=== PATIENT | female | born 1960 | race Caucasian/White ===

== ENCOUNTER 2023-06-27 18:33 | Emergency (ER) | payer OTHER, SELFPAY ==
[2023-06-27 18:36] VITALS: BP 155/97; PULSE 63; RESP 20; TEMP 36.7; O2SAT 95; BMI 38.6
--- NOTE | 2023-06-27 19:09 | XR_ITS ---
The [address] [address] Patient Name: LEODAN TONEY MRN: [id number] date: 1960 Sex: F Assigned Patient Location: ER Current Patient Location: ER Accession/Order Number: [id number] Exam Date: 06/27/2023 20:05 Report Date: 06/27/2023 21:25 At the request of: EDWARD SINGER Procedure: XR lumbar spine 2-3V EXAM TYPE: XR lumbar spine 2-3V EXAM DATE AND TIME: 06/27/2023 8:05 PM EDT INDICATION: 62 years old Female with pain COMPARISON: None. TECHNIQUE: 3 views of the lumbar spine. FINDINGS: No acute fracture or traumatic malalignment. Normal lumbar lordosis. No listhesis. No abnormal curvature. Vertebral body heights are normal. Disc heights are maintained. Visualized soft tissues are unremarkable. XR/XR lumbar spine 2-3V IMPRESSION: No acute fracture or traumatic malalignment. CT or MRI of the lumbar spine considered for further evaluation, as clinically indicated. Electronically authenticated by: SHABBIR PEACOCK Date: 06/27/2023 21:25
--- NOTE | 2023-06-27 19:21 | ED_ITS ---
HPI - Extremity Problem General Chief complaint: Extremity Problem, Nontraumatic Stated complaint: Lower Extremity Pain Time Seen by Provider: 06/27/23 19:18 Source: patient Mode of arrival: walk-in Limitations: no limitations History of Present Illness HPI Narrative: 62-year-old female presents for bilateral leg pain which she has had for many months. Her right leg hurts from the hip down and the left from the knee down. Her back also hurts. No trauma. No leg swelling. No chest pain or shortness of breath. She hasn't talked to her doctor about this and hasn't taken any medication for it either. The pain is moderate. Related Data Home Medications Medication Instructions Recorded Confirmed albuterol sulfate 90 mcg/actuation 2 puff inhalation Q4H PRN 06/27/23 06/27/23 aerosol inhaler shortness of breath or wheezing tramadol 50 mg tablet 50 mg PO Q6H PRN pain 06/27/23 06/27/23 Previous Rx's Medication Instructions Recorded etodolac 400 mg tablet (Lodine) 400 mg PO Q12H PRN pain #20 tabs 06/27/23 Allergies Allergy/AdvReac Type Severity Reaction Status Date / Time codeine AdvReac Severe Hallucinati Verified 06/27/23 18:41 ng Review of Systems ROS Narrative A ten point review of systems is negative except as noted above. PFSH PFSH Social History Smoking status: Never smoker Exam Narrative Exam Narrative: Nurses note and vital signs reviewed and patient is not hypoxic. General: The patient appears well and in no apparent distress. Patient is resting comfortably on cart. Skin: Warm, dry, no pallor noted. There is no rash noted. Head: Normocephalic, atraumatic Eye: Normal conjunctiva, no drainage Ears, Nose, Mouth, and Throat: oral mucosa is moist. Nares patent. Cardiovascular: Regular Rate and Rhythm Respiratory: Patient is in no distress, no accessory muscle use, lungs are clear to auscultation, no wheezing, rales or rhonchi Back: non-tender, no bruise or rash or abrasion to her back GI: nontender Musculoskeletal: neither leg is swollen at any point. No erythema. No masses. No bruising or rash. Hips knees and ankles have full range of motion. No ankle edema. Neurological: A&O, normal speech Psychiatric: Cooperative Constitutional Vital Signs, click to edit/add: Last Vital Signs Temp 97.9 F 06/27/23 20:18 Pulse 60 06/27/23 20:18 Resp 18 06/27/23 20:18 BP 150/98 H 06/27/23 20:18 Pulse Ox 95 06/27/23 20:18 O2 Del Method Room Air 06/27/23 20:18 Course Vital Signs Vital signs: Vital Signs Temperature 98.1 F 06/27/23 18:36 Pulse Rate 63 06/27/23 18:36 Respiratory Rate 20 06/27/23 18:36 Blood Pressure 155/97 H 06/27/23 18:36 Pulse Oximetry 95 06/27/23 18:36 Oxygen Delivery Method Room Air 06/27/23 18:36 Temperature 97.9 F 06/27/23 20:18 Pulse Rate 60 06/27/23 20:18 Respiratory Rate 18 06/27/23 20:18 Blood Pressure 150/98 H 06/27/23 20:18 Pulse Oximetry 95 06/27/23 20:18 Oxygen Delivery Method Room Air 06/27/23 20:18 MDM - Extremity (Nontraumatic) MDM Narrative Medical decision making narrative: Lumbar films do not show any acute findings and blood work is negative. I've no clinical suspicion of deep vein thrombosis and she is reassured in that regard. She is already on Ultram at home and was prescribed Lodine and will follow-up with her doctor. Treatment diagnosis and follow-up were discussed with the patient. Differential Diagnosis Differential diagnosis: Likely other (skeletal skeletal pain, deep vein thrombosis, lumbar radiculopathy) Lab Data Labs: Lab Results 06/27/23 Range/Units 19:17 WBC 6.2 (4.0-11.0) 10^3/uL RBC 4.36 (4.20-5.40) 10^6/uL Hgb 13.2 (12.0-16.0) g/dL Hct 41.1 (36.0-48.0) % MCV 94.3 (81.0-99.0) fL MCH 30.3 (26.7-34.0) pg MCHC 32.1 (29.9-35.2) g/dL RDW 14.3 (11.0-15.0) % Plt Count 220 (150-450) 10^3/uL MPV 10.5 (9.5-13.5) fL Neut % (Auto) 50.4 (43.0-75.0) % Lymph % (Auto) 34.1 (20.5-60.0) % [place] % (Auto) 8.8 (1.7-12.0) % Eos % (Auto) 5.5 (0.9-7.0) % Baso % (Auto) 1.0 (0.2-2.0) % Neut # (Auto) 3.1 (1.4-6.5) 10^3/uL Lymph # (Auto) 2.1 (1.2-3.8) 10^3/uL [place] # (Auto) 0.5 (0.3-0.8) 10^3/uL Eos # (Auto) 0.3 (0.0-0.7) 10^3/uL Baso # (Auto) 0.1 (0.0-0.1) 10^3/uL Abs Immat Gran (auto) 0.01 (0.00-0.03) 10^3/uL Imm/Tot Granulo (auto) 0.2 (0.0-0.5) % Sodium 139 (136-145) mmol/L Potassium 4.0 (3.5-5.1) mmol/L Chloride 105 (98-107) mmol/L Carbon Dioxide 26.3 (21.0-32.0) mmol/L Anion Gap 11.7 BUN 16.0 (7.0-18.0) mg/dL Creatinine 1.15 H (0.55-1.02) mg/dL Est GFR ( Amer) 58 L (>=60) Est GFR (Non-Af Amer) 48 L (>=60) BUN/Creatinine Ratio 13.9 Glucose 105 (74-106) mg/dL Calcium 8.6 (8.5-10.1) mg/dL Imaging Data lumbar x-rays: Radiologist's impression: Procedure: XR lumbar spine 2-3V EXAM TYPE: XR lumbar spine 2-3V EXAM DATE AND TIME: 06/27/2023 8:05 PM EDT INDICATION: 62 years old Female with pain COMPARISON: None. TECHNIQUE: 3 views of the lumbar spine. FINDINGS: No acute fracture or traumatic malalignment. Normal lumbar lordosis. No listhesis. No abnormal curvature. Vertebral body heights are normal. Disc heights are maintained. Visualized soft tissues are unremarkable. IMPRESSION: No acute fracture or traumatic malalignment. CT or MRI of the lumbar spine considered for further evaluation, as clinically indicated. Electronically authenticated by: SHABBIR PEACOCK Date: 06/27/2023 21:25 Discharge Plan Discharge Chief Complaint: Extremity Problem, Nontraumatic Clinical Impression: Bilateral leg pain Patient Disposition: Home, Self-Care Time of Disposition Decision: 21:39 Condition: Good Mode of Transportation: Private Vehicle Prescriptions / Home Meds: New etodolac [Lodine] 400 mg tablet 400 mg PO Q12H PRN (Reason: pain) Qty: 20 0RF No Action albuterol sulfate 90 mcg/actuation HFA aerosol inhaler 2 puff INHALATION Q4H PRN (Reason: shortness of breath or wheezing) tramadol 50 mg tablet 50 mg PO Q6H PRN (Reason: pain) Instructions: Leg Pain (ED) Stand Alone Forms: Portal Instructions Referrals: LAVON NOVA [Primary Care Provider] - 1 week
[2023-06-27 19:37] LABS: Anion Gap 11.7; BUN Creatinine Ratio 13.9; Calcium 8.6 mg/dL (8.5-10.1); Carbon Dioxide 26.3 mmol/L (21.0-32.0); Chloride 105 mmol/L (98-107); Estimated GFR (African America 58 (>=60); Estimated GFR (Non-African Ame 48 (>=60); Glucose 105 mg/dL (74-106); Sodium 139 mmol/L (136-145)
[2023-06-27 19:44] LABS: Basophils Absolute Auto 0.1 10^3/uL (0.0-0.1); Eosinophils Absolute Auto 0.3 10^3/uL (0.0-0.7); Eosinophils Percent Auto 5.5 % (0.9-7.0); Hematocrit 41.1 % (36.0-48.0); Hemoglobin 13.2 g/dL (12.0-16.0); Immature Granulocytes Abs Auto 0.01 10^3/uL (0.00-0.03); Immature Granulocytes Pct Auto 0.2 % (0.0-0.5); Lymphocytes Absolute Auto 2.1 10^3/uL (1.2-3.8); Lymphocytes Percent Auto 34.1 % (20.5-60.0); Mean Corpuscular HGB Conc 32.1 g/dL (29.9-35.2); Mean Corpuscular Hemoglobin 30.3 pg (26.7-34.0); Mean Corpuscular Volume 94.3 fL (81.0-99.0); Mean Platelet Volume 10.5 fL (9.5-13.5); Monocytes Absolute Auto 0.5 10^3/uL (0.3-0.8); Monocytes Percent Auto 8.8 % (1.7-12.0); Neutrophils Absolute Auto 3.1 10^3/uL (1.4-6.5); Neutrophils Percent Auto 50.4 % (43.0-75.0); Platelet Count 220 10^3/uL (150-450); Red Blood Count 4.36 10^6/uL (4.20-5.40); Red Cell Distribution Width 14.3 % (11.0-15.0); White Blood Count 6.2 10^3/uL (4.0-11.0)
[2023-06-27 20:18] VITALS: BP 150/98; PULSE 60; RESP 18; TEMP 36.6; O2SAT 95
== END 2023-06-27 22:00 | disposition home or self-care (01) ==
PROVIDERS: Emergency Medicine Emergency Medical Services; Emergency Provider Emergency Medicine; PCP Internal Medicine
DX: M79.605 Pain in left leg (principal); M79.604 Pain in right leg; Z79.899 Other long term (current) drug therapy
CPT/HCPCS: 36415; 72100; 80048; 85025; 99284

== ENCOUNTER 2023-11-20 14:26 | Outpatient (OUT) | payer OTHER, SELFPAY ==
--- NOTE | 2023-11-20 14:30 | CA_ITS ---
[facility] Test Date: 2023-12-08 Pat Name: LEODAN TONEY Department: Room: - Gender: Female Emergency Medicine: : 1960 Requested By: [id number] Order Number: [id number] Reading MD: CHET HARRIS Interpretive Statements Predominant rhythm is sinus with average rate of 53 bpm Tachycardia - max rate of 121 bpm (PSVT) - 7 episodes of PSVT w/ fastest rate 121 bpm and longest duration of 8 beats - longest episode of 1min 26sec with rates between 103-104 bpm Bradycardia (84% burden) - min rate of 34 bpm, occurring during sleep Ventricular ectopy - 1,109 total, < 1% - 58 couplets - 1,048 PVC NSVT - 1 episodes of accelerated idioventriculr rhythm of 3 beat duration Patient triggered events: 3 - not associated with symptoms - associated with sinus bradycardia w/ rates between 50-60 bpm Impression: Predominant rhythm is sinus with average rate of 53 bpm Fastest rate of 121 bpm (PSVT) and slowest rate of 34 bpm 1 episode of idioventricular rhythm of 3 beat duration 1 episodes labeled junctional rhythm, which is questionable, since P waves are difficult to visualize on all strips. 1,048 PVC, 58 couplets No atrial fibrillation No pauses Electronically Signed On 12-10-2023 6:58:33 EDT by CHET HARRIS
== END 2023-11-20 14:27 | disposition home or self-care (01) ==
LOC: CARD 14:26
PROVIDERS: PCP Internal Medicine; Visit Provider Nurse Practitioner Family
DX: R07.2 Precordial pain (principal); R00.1 Bradycardia, unspecified
CPT/HCPCS: 93246

== ENCOUNTER 2024-06-21 08:49 | Outpatient (OUT) | payer OTHER, SELFPAY ==
--- OUTSIDE RECORDS SUMMARY | 2024-06-21 09:00 | XMS_ITS | CCD ---
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 Role Phone UNKNOWN, PROVIDER Admitting Unavailable UNKNOWN, PROVIDER Attending Unavailable ADRIAN FARIA Referring Unavailable ADRIAN FARIA Primary Care Unavailable ISAIAS, DR KIKE Contreras Attending Unavailable ISAIAS, DR KIKE Contreras Consulting Unavailable ISAIAS, DR KIKE Contreras Admitting Unavailable DR ADRIAN FARIA Primary Care Unavailable ADRIAN FARIA Primary Care Physician [phone] RYNE Faria Primary Care Provider [phone] TREE Vazquez Attending Provider [phone] None, No PCP Unavailable Unavailable BERKLEY ANNE Referring Unavailable ADRIAN FARIA Primary Care Unavailable Dr. Berkley Anne Attending Unav ailable Radha, Dr. Berkley Sue Attending Unav ailable Unavailable Primary Care Provider UnavailBERKLEY Solorio Attending Unavailable BERKLEY ANNE Referring Unavailable BERKLEY ANNE Attending Unavailable BERKLEY ANNE Referring Unavailable Adrian Faria MD Primary Care Provider [phone] Adrian Faria MD Unavailable [phone] RYNE Faria Primary Care Provider RYNE Faria Referring Provider Self, Referral Attending Provider Unavailable Self, Referral Attending Unavailable Self, Referral Admitting Unavailable Adrian Faria Referring Unavailable Adrian Faria Primary Care Unavailable Jamal Gardner Attending Unavailable MD Hi Rey Attending Unavailable DEE CULLEN NP-C Referring Unavailable Ramses Corea Attending Unavailable Riccardo Resendiz Consulting Unavaila DEE Mora PASTRY CHEF-C Admitting Unavailable DEE CULLEN PASTRY CHEF-C Attending Unavailable DEE CULLEN PASTRY CHEF-C Referring Unavailable MD Riccardo Resendiz Consulting Unava Riccardo Flores Consulting Unavaila ble ADRIAN FARIA Admitting Unavailable ADRIAN FARIA Attending Unavailable MD Hi Rey Admitting Unavailable MD Hi Rey Attending Unavailable DEE CULLEN PASTRY CHEFMary Admitting Unavailable DEE CULLEN PASTRY CHEFMiltonC Attending Unavailable ADRIAN FARIA Attending Unavailable ADRIAN FARIA Attending Unavailable DEE CULLEN Attending Unavailable ADRIAN FARIA Attending Unavailable DEE CULLEN Attending Unavailable DEE CULLEN Attending Unavailable ANTWAN VAZQUEZ Attending Unavailable ADRIAN FARIA Attending Unavailable Allergies Allergy Classification Reported Allergen(s) Allergy Type Date of Onset Reaction(s) Facility Opioid Agonists (1 source) Codeine Drug Allergy 11-22-19 16 [facility] Repository (5 sources) Codeine; Translations: [CODEINE] Drug Allergy 11-17-19 18 Halluc[address] [facility] Repository (20 sources) Codeine; Translations: [codeine] Drug Allergy 04-08-20 23 Hallucinations (finding), Unknown [facility] (3 sources) Latex Exam Gloves MISC; Translations: [Latex Exam Gloves MISC] Allergy to drug (finding) [facility] Work Phone: (2 sources) Latex; Translations: [LATEX] Propensity to adverse reactions 05-15-20 Unknown [facility] Work Phone: (5 sources) Latex Propensity to adverse reactions 05-15-20 Unknown [facility] Work Phone: (1 source) Codeine Drug Allergy 02-17-20 19 [facility] Repository Medications Current Medications Medication Drug Class(es) Dates Sig (Normalized) Sig (Original) [id number] 200 actuat albuterol 0.09 mg/actuat metered dose inhaler (20 sources) beta2-Adrenergic Agonist Start: 05-13-2023 End: 05-12-2024 take 2 puff(s) by inhalation every four hours for wheezing albuterol HFA 90 mcg/act inhaler Indications: Moderate persistent asthma with exacerbation (CMS/HCC) Inhale 2 puffs every 4 (four) hours if needed for wheezing or shortness of breath. 18 g 11 05/13/2023 05/12/2024 Active Start: 08-19-2021 take 2.5 mg by inhal ation every six hours as needed for wheezing albuterol 0.083% Inh Leila 3 mL 2.5 mg, 3 mL, NEB, q6hr as needed for wheezing, Refill(s) 0 Start Date: 08/19/21 Status: Ordered Start: 06-20-2018 End: 01-20-2022 take 1 puff(s) by inhalation every six hours Albuterol Sulfate Discontinued 2 PUFF INHALATION Q6H June 20, 2018 12:00am January 20, 2022 8:35am albuterol (2.5 M G/3ML) 0.083% nebulizer solution inhale contents of 1 vial ( 3 milliliters ) in nebulizer by mouth and INTO THE LUNGS every 4 to 6 hours if needed for 30 0 Active amoxicillin 875 mg / clavulanate 125 mg oral tablet (2 sources) Penicillin-class Antibacterial Start: 10-07-2023 End: 10-17-2023 take 1 tablet by mouth in the morning amoxicillin-clavulanate (Augmentin) 875-125 MG tablet Indications: Acute non-recurrent sinusitis, unspecified location Take 1 tablet (875 mg) by mouth in the morning and 1 tablet (875 mg) before bedtime. Do all this for 10 days. 20 tablet 0 10/07/2023 10/17/2023 Active cefdinir 300 mg oral capsule (2 sources) Cephalosporin Antibacterial Start: 10-29-2023 End: 11-05-2023 take 1 capsule by mouth in the morning cefdinir (Omnicef) 300 MG capsule Indications: Acute non-recurrent sinusitis, unspecified location , Cervical radiculitis Take 1 capsule (300 mg) by mouth in the morning and 1 capsule (300 mg) before bedtime. Do all this for 7 days. 14 capsule 0 10/29/2023 11/05/2023 Active 30 actuat fluticasone furoate 0.1 mg/actuat / umeclidinium 0.0625 mg/actuat / vilanterol 0.025 mg/actuat dry powder inhaler (5 sources) Anticholinergic, Corticosteroid, beta2-Adrenergic Agonist Start: 10-07-2023 take 1 puff(s) by inhalation in the morning Cqxwixpmmuy-Ctnjqdatb-Ise ant (Trelegy Ellipta) 100-62.5-25 MCG/ACT aerosol powder Indications: Moderate persistent asthma with exacerbation (CMS/HCC) Inhale 1 puff in the morning. 0 10/07/2023 Active gabapentin 300 mg oral capsule (8 sources) Anti-epileptic Agent Start: 08-19-2021 take 2 capsules by mouth twice daily gabapentin 300 mg Cap 600 mg = 2 cap(s), Oral, BID, Refills(s) 0 Start Date: 08/19/21 Status: Ordered levoFLOXacin 500 mg oral tablet (2 sources) Quinolone Antimicrobial Start: 10-15-2023 End: 10-25-2023 take 1 tablet by mouth in the morning levoFLOXacin (Levaquin) 500 MG tablet Indications: Acute non-recurrent sinusitis, unspecified location Take 1 tablet (500 mg) by mouth in the morning for 10 days. 10 tablet 0 10/15/2023 10/25/2023 Active meclizine hydrochloride 25 mg oral tablet (10 sources) Antiemetic Start: 08-13-2023 take 1 tablet by mouth three times daily as needed for dizziness meclizine 25 mg Tab 25 mg = 1 tab(s), Oral, TID, PRN Dizziness, # 15 tab(s), Refills(s) 0, [id number], 162, cm, 08/13/23 13:28:00 EST, Height/Length Dosing, 101.5, kg, 08/13/23 13:28:00 EST, Weight Dosing Start Date: 08/13/23 Status: Ordered Start: 08-19-2021 take 1 tablet by kulwinder th once daily meclizine 25 mg Tab 25 mg = 1 tab(s), Oral, Daily, Refills(s) 0 Start Date: 08/19/21 Status: Ordered methylPREDNISolone (2 sources) Corticosteroid Start: 10-29-2023 End: 11-05-2023 methylPREDNISolone (Medrol Dospak) 4 MG tablets Indications: Acute non-recurrent sinusitis, unspecified location Follow schedule on package instructions 21 tablet 0 10/29/2023 11/05/2023 Active predniSONE 20 mg oral tablet (3 sources) Start: 04-04-2024 End: 04-09-2024 take 2 tablets by mouth once daily predniSONE 20 mg Tab 40 mg = 2 tab(s), Oral, Daily, X 5 day(s), # 10 tab(s), Refills(s) 0, Pharmacy: [facility]/pharmacy #[id number], 162, cm, 04/04/24 13:53:00 EDT, Height/Length Dosing, 100.1, kg, 04/04/24 13:53:00 EDT, Weight Dosing Start Date: 04/04/24 Stop Date: 04/09/24 Status: Ordered Start: 06-20-2018 End: 10-07-2019 take 60 mg by mouth once daily Prednisone Discontinued 60 MG PO Daily June 20, 2018 12:00am October 07, 2019 10:25am ProAir HFA 90 mcg/inh inhalation aerosol (11 sources) Start: 08-19-2021 take 2 puff(s) by inhalation every four hours as needed for wheezing ProAir HFA 90 mcg/inh inhalation aerosol 2 puff(s), Inhalation, q4hr as needed for wheezing, Refill(s) 0 Start Date: 08/19/21 Status: Ordered traMADol hydrochloride 50 mg oral tablet (20 sources) Opioid Agonist Start: 03-06-2018 tramadol 50 mg oral tablet Refills(s) 0 Start Date: 11/16/20 Status: Ordered Zofran ODT 4 mg Tab-Dis (2 sources) Start: 08-13-2023 take 1 tablet by mouth three times daily Zofran ODT 4 mg Tab-Dis 4 mg = 1 tab(s), Oral, TID, # 15 tab(s), Refills(s) 0, Pharmacy: [facility] #[id number], 162, cm, 08/13/23 13:28:00 EST, Height/Length Dosing, 101.5, kg, 08/13/23 13:28:00 EST, Weight Dosing Start Date: 08/13/23 Status: Ordered zolpidem tartrate 10 mg oral tablet (8 sources) gamma-Aminobut yric Acid-ergic Agonist Start: 08-19-2021 take 1 tablet by mouth once daily at bedtime as needed for sleep Ambien 10 mg Tab 10 mg = 1 tab(s), Oral, Once a day (at bedtime), PRN for sleep Start Date: 08/19/21 Status: Ordered Completed/Discontinued Medications Medication Drug Class(es) Dates Sig (Normalized) Sig (Original) acetaminophen 325 mg / HYDROcodone bitartrate 5 mg oral tablet (2 sources) Opioid Agonist Start: 10-07-2019 End: 01-20-2022 take 1 tablet by mouth every four to six hours Hydrocodone-Acetamin ophen (Beals) 5-325 mg Tablet Discontinued 1 TAB PO EVERY 4-6 HOURS 7 October 07, 2019 1:00am January 20, 2022 8:35am benzonatate 100 mg oral capsule (2 sources) Non-narcotic Antitussive Start: 06-20-2018 End: 10-07-2019 take 1 capsule by mouth four times daily Benzonatate (Tessalon Perles) 100 mg capsule Discontinued 100 MG PO Four times daily June 20, 2018 12:00am October 07, 2019 10:25am cyclobenzaprine hydrochloride 10 mg oral tablet (2 sources) Muscle Relaxant Start: 10-07-2019 End: 01-20-2022 take 10 mg by mouth three times daily Cyclobenzaprine Discontinued 10 MG PO Three times daily October 07, 2019 1:00am January 20, 2022 8:35am Fluticasone Propion-Salmeterol (2 sources) Corticosteroid, beta2-Adrenergic Agonist Start: 06-20-2018 End: 01-20-2022 Fluticasone Propion-Salmeterol (Advair Diskus) 250-50 mcg/dose blister with device Discontinued 1 INH INHALATION Twice daily June 20, 2018 12:00am January 20, 2022 8:35am Problems Active Problems Problem Classification Problem Date Documented Date Episodic/Chronic Asthma (20 sources) Asthma; Translations: [Exacerbation of moderate persistent asthma] Onset: 08-13-2011 11-16-2020 Chronic Cataract (5 sources) Nuclear senile cataract; Translations: [Age-related nuclear cataract, unspecified eye] Onset: 04-08-2023 04-08-2023 Chronic Chronic kidney disease (5 sources) Chronic kidney disease stage 3A ; Translations: [Stage 3a chronic kidney disease (HCC)] Onset: 04-08-2023 04-08-2023 Chronic Disorders of lipid metabolism (5 sources) Raised low density lipoprotein cholesterol; Translations: [Pure hypercholesterolemia, unspecified] Onset: 04-08-2023 04-08-2023 Chronic Diverticulosis and diverticulitis (5 sources) Diverticulosis of sigmoid colon; Translations: [Diverticulosis of large intestine without perforation or abscess without bleeding] Onset: 04-08-2023 04-08-2023 Chronic Glaucoma (5 sources) 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; Translations: [Anatomical narrow angle, unspecified eye] Onset: 04-08-2023 04-08-2023 Chronic Joint disorders and dislocations; trauma-related (5 sources) Traumatic arthropathy-knee; Translations: [Traumatic arthropathy, left knee] Onset: 04-08-2023 04-08-2023 Chronic Osteoarthritis (3 sources) Primary osteoarthritis, right shoulder; Translations: [Primary osteoarthritis, unspecified shoulder] Onset: 03-19-2023 Chronic Other connective tissue disease (16 sources) Fibromyalgia; Translations: [Fibromyalgia] Onset: 04-08-2023 08-19-2021 Episodic Other connective tissue disease (1 source) Nontraumatic rupture of rotator cuff of right shoulder; Translations: [Partial tear of rotator cuff] Episodic Other connective tissue disease (1 source) Incomplete rotator cuff tear or rupture of right shoulder, not specified as traumatic; Translations: [Incomplete rotatr-cuff tear/ruptr of r shoulder, not trauma] Onset: 03-19-2023 Episodic Other nervous system disorders (5 sources) Carpal tunnel syndrome of left wrist; Translations: [Carpal tunnel syndrome, left upper limb] Onset: 04-08-2023 04-08-2023 Chronic Other nervous system disorders (5 sources) Mononeuropathy of lower limb; Translations: [Unspecified mononeuropathy of right lower limb] Onset: 04-08-2023 04-08-2023 Chronic Other non-traumatic joint disorders (6 sources) Loose body in shoulder joint; Translations: [Loose body in joint, shoulder region] Chronic Other non-traumatic joint disorders (1 source) Loose body in unspecified shoulder; Translations: [Loose body in unspecified shoulder] Onset: 02-24-2023 Chronic Other non-traumatic joint disorders (1 source) Loose body in right shoulder; Translations: [Loose body in right shoulder] Onset: 03-19-2023 Chronic Other non-traumatic joint disorders (6 sources) Loose body in joint of right shoulder region; Translations: [Loose body in right shoulder] Onset: 05-15-2023 05-15-2023 Chronic Other non-traumatic joint disorders (3 sources) Pain in right shoulder; Translations: [Pain in right shoulder] Onset: 01-12-2023 Episodic Other non-traumatic joint disorders (3 sources) Pain in right knee; Translations: [Pain in joint, lower leg] Onset: 07-13-2023 07-13-2023 Episodic Other non-traumatic joint disorders (1 source) Pain of right shoulder joint; Translations: [Pain in right shoulder] Onset: 04-04-2024 Episodic Other non-traumatic joint disorders (1 source) Pain in right hip joint; Translations: [Pain in right hip] Onset: 04-04-2024 Episodic Other nutritional; endocrine; and metabolic disorders (5 sources) Body mass index 30+ - obesity; Translations: [Obesity, unspecified] Onset: 04-08-2023 04-08-2023 Chronic Other nutritional; endocrine; and metabolic disorders (1 source) Obese class II; Translations: [Body mass index (BMI) 38.0-38.9, adult] Onset: 04-04-2024 Chronic Other screening for suspected conditions (not mental disorders or infectious disease) (9 sources) Patient encounter status; Translations: [Encounter for screening for malignant neoplasm of colon] Onset: 10-15-2023 01-20-2022 Episodic Other upper respiratory infections (4 sources) Acute sinusitis; Translations: [Acute sinusitis, unspecified] 10-15-2023 Episodic Residual codes; unclassified (11 sources) Sleep apnea 11-16-2020 Chronic Residual codes; unclassified (5 sources) Obstructive sleep apnea syndrome; Translations: [Obstructive sleep apnea (adult) (pediatric)] Onset: 11-25-2011 04-08-2023 Chronic Spondylosis; intervertebral disc disorders; other back problems (5 sources) Displacement of cervical intervertebral disc; Translations: [Other cervical disc displacement, unspecified cervical region] Onset: 04-08-2023 04-08-2023 Chronic Spondylosis; intervertebral disc disorders; other back problems (2 sources) Cervical radiculitis; Translations: [Radiculopathy, cervical region] 10-29-2023 Episodic Sprains and strains (14 sources) Strain of neck muscle; Translations: [Strain of muscle, fascia and tendon at neck level, initial encounter] Onset: 10-15-2023 10-07-2019 Episodic Past or Other Problems Problem Classification Problem Date Documented Date Episodic/Chronic Immunizations and screening for infectious disease (5 sources) Rheumatoid factor positive; Translations: [Other specified abnormal immunological findings in serum] Onset: 04-08-2023 04-08-2023 Episodic Nonspecific chest pain (5 sources) Chest pain; Translations: [Chest pain, unspecified] Onset: 11-13-2017 10-15-2023 Episodic Other connective tissue disease (6 sources) Non-traumatic partial tear of right rotator cuff; Translations: [Incomplete rotator cuff tear or rupture of right shoulder, not specified as traumatic] Onset: 05-15-2023 05-15-2023 Episodic Other nervous system disorders (5 sources) Paresthesia; Translations: [Paresthesia of skin] Onset: 04-08-2023 04-08-2023 Episodic Other non-traumatic joint disorders (9 sources) Shoulder joint pain; Translations: [Pain in joint, shoulder region] Onset: 05-15-2023 05-15-2023 Episodic Residual codes; unclassified (5 sources) Insomnia; Translations: [Insomnia, unspecified] Onset: 04-08-2023 04-08-2023 Episodic Results Test Name Value Interpretation Reference Range Facility Ambulatory Visit Summaryon 0 04-04-2024 Ambulatory Visit Summary Ambulatory Visit Summary RHONDA HULL :1960 Visit Date:04/04/2024 Ambulatory Visit Instructions Your Diagnosis BMI 38.0-38.9,adult Your Care Team Attending Physician - Anmol CASTANO, Ramses Dunn Primary Care Physician - ADRIAN FARIA MD This Is Your Medications List predniSONE (predniSONE 20 mg Tab) Contact prescribing physician if questions or concerns albuterol (ProAir HFA 90 mcg/inh inhalation aerosol) albuterol (albuterol 0.083% Inh Leila 3 mL) tramadol (tramadol 50 mg oral tablet) Procedures Performed Colonoscopy (07/21/2011), section, Cholecystectomy, Plastic surgery, Tonsillectomy. Discharge Vitals Temperature (Oral) 37 ?C Heart Rate (Peripheral) 60 Respiratory Rate 18 Blood Pressure 112/68 Height 162 cm Height 64 in Weight 100.1 kg Weight 220.22 lb BMI 38.14 What to do next Scheduled Follow-Up Appointments Thursday 1:00 PM EDT With: Hi Rey MD Where: [facility] You Need to Schedule the Following Appointments Follow Up with BIENVENIDO COUCH, ADRIAN Coughlin, MORGAN When: Where: [address] [place] [address]- Medications What How Much When Why Instructions New predniSONE (predniSONE 20 mg Tab) 2 Tablets By Mouth Every day BMI 38.0-38.9,adult Duration: 5 Days Pickup at [facility]/pharmacy #[id number] Unchanged albuterol (albuterol 0.083% Inh Leila 3 mL) 3 Milliliter Nebulized inhalation (aerosol) Every 6 hours as needed for as needed for wheezing Contact prescribing physician if questions or concerns Unchanged albuterol (ProAir HFA 90 mcg/ inh inhalation aerosol) 2 Puffs Inhalation Every 4 hours as needed for as needed for wheezing Contact prescribing physician if questions or concerns Unchanged tramadol (tramadol 50 mg oral tablet) Contact prescribing physician if questions or concerns Pharmacy Information [facility]/pharmacy #[id number]: [address] [place] [employer], [place] [id number] [phone] Allergies codeine (Hallucinations) Problems Ongoing - Any problem that you are currently receiving treatment for. Asthma Fibromyalgia Sleep apnea Patient Survey You may receive a survey via text or e-mail asking about your office visit. Please share your experience with us by completing your survey. We appreciate your feedback and thank you for choosing us for your care. Education Materials BMI for Adults What is BMI? Body mass index (BMI) is a number that is calculated from a person's weight and height. BMI can help estimate how much of a person's weight is composed of fat. BMI does not measure body fat directly. Rather, it is an alternative to procedures that directly measure body fat, which can be difficult and expensive. BMI can help identify people who may be at higher risk for certain medical problems. What are BMI measurements used for? BMI is used as a screening tool to identify possible weight problems. It helps determine whether a person is obese, overweight, a healthy weight, or underweight. BMI is useful for: ? Identifying a weight problem that may be related to a medical condition or may increase the risk for medical problems. ? Promoting changes, such as changes in diet and exercise, to help reach a healthy weight. BMI screening can be repeated to see if these changes are working. How is BMI calculated? BMI involves measuring your weight in relation to your height. Both height and weight are measured, and the BMI is calculated from those numbers. This can be done either in [place] or metric measurements. Note that charts and online BMI calculators are available to help you find your BMI quickly and easily without having to do these calculations yourself. To calculate your BMI in [place] measurements: 1. Measure your weight in pounds (lb). 2. Multiply the number of pounds by 703. ? For example, for a person who weighs 180 lb, multiply that number by 703, which equals 126,540. 3. Measure your height in inches. Then multiply that number by itself to get a measurement called inches squared. ? For example, for a person who is 70 inches tall, the inches squared measurement is 70 inches x 70 inches, which equals 4,900 inches squared. 4. Divide the total from step 2 (number of lb x 703) by the total from step 3 (inches squared): 126,540 ? 4,900 = 25.8. This is your BMI. To calculate your BMI in metric measurements: 1. Measure your weight in kilograms (kg). 2. Measure your height in meters (m). Then multiply that number by itself to get a measurement called meters squared. ? For example, for a person who is 1.75 m tall, the meters squared measurement is 1.75 m x 1.75 m, which is equal to 3.1 meters squared. 3. Divide the number of kilograms (your weight) by the meters squared number. In this example: 70 ? 3.1 = 22.6. This is your BMI. What do the results mean? BMI charts are used to identify whether you are underweigh (more content not included)... Normal [facility] Family Medicine Office/Clini c Noteon 04-04-2024 Family Medicine Office/Clinic Note Family Medicine Office/Clinic Note Chief Complaint Right shoulder/hip pain HPI Staff 63 year old female present for pain in right hip and right shoulder. Pt states that she is unable due to the pain. She states that there was no known injury. Onset: OTC: Tramadol History of Present Illness I have reviewed and verified the staff HPI to be accurate for this encounter. Portions of this record have been created with voice recognition software. Occasional wrong-word or ?[id number]? substitutions may have occurred due to the inherent limitations of voice recognition software. 63 yo female presents today with cc of pain in right shoulder and right hip. Patient states she has had a right shoulder pain for at least a year has been seen by orthopedics in the past in regards to right shoulder discomfort states initially they told her that she had arthritic changes and may require a shoulder replacement however then stated they would wait to do anything at this time. Patient states she has never had any joint injections and does not wish to have that done ever. States her dad was told her never to have anything stuck into her joints. Patient states right hip pain which she states has been in the last week or so is that she was going up and down the stairs but it has more so at the right lower back region, radiates into the top of the right posterior hip and buttock. She denies any falls trauma or injuries. States that she had imaging of the right shoulder approximately a year ago states that she has never had the right hip x-rays in the past. Denies any weakness numbness or tingling of the lower extremities. Denies any weakness numbness or tingling of the arm or hand. Does state that the shoulder pain does occasionally radiate into the top of the right posterior arm, near the triceps region but does not extend into the fingers. She has been taking her tramadol as needed which is prescribed to her by her primary care provider. She has no other concerns at this time Review of Systems PHQ Score Initial Depression Screen Score: 0 SCORE ROS negative unless otherwise stated in HPI. Physical Exam Vitals & Measurements T: 37 ?C(Oral) HR: 60(Peripheral) RR: 18 BP: 112/68 SpO2: 97% HT: 64 in HT: 162 cm WT: 100.1 kg WT: 220.22 lb BMI: 38.14 General: Pleasant obese elderly female, no acute distress Eyes: not assessed Ears: not assessed Nose: not addressed Mouth: not assessed Neck: not assessed Lungs: Lung sounds are clear bilaterally. No wheezing rhonchi or crackles on exam. Cardio: S1, S2, regular rhythm. No murmurs gallops or rubs. Abdomen: not assessed Extremity: Patient has strong radial and pedal pulses with brisk capillary refill bilaterally. No acute lower extremity edema. Patient has discomfort with palpation over the right posterior SI joint region. There is no localized thoracic or lumbar spine tenderness no paraspinal tenderness no CVA tenderness. Pain is located over the right SI joint region which does radiate into the top of the right hip and buttock. I believe this to be more sciatic in nature. Patient right shoulder pain is discomfort with palpation of the right anterior shoulder and right lateral shoulder. Pain with some range of the motion which she states occasionally radiates into the right triceps region no overlying bruising lacerations abrasions or lesions. No focal deficits. Patient is neurovascularly intact. Neurologic: not assessed Skin: No rashes, ulcerations, or suspicious lesions Mental Status: Alert and oriented x3. Normal mood and affect Assessment/Plan I spoke with patient regards to her right shoulder and right hip pain. I did offer the patient x-ray imaging studies however she declines at this time and would like to follow-up with orthopedics for these imaging studies if necessary. I discussed that we could prescribe and oral steroids such as prednisone 40 mg daily x 5 days duration which may help with joint pain and inflammation patient will otherwise continue rest ice elevation Tylenol or heat as needed for comfort. Tylenol is safe to take even with her tramadol. She understands to eat when taking the prednisone as it can cause upset stomach. She denies any history of GI bleeding. She does not currently take any aspirin or blood thinners. Was told to stay away from NSAID medications due to skin thinning and easy bruising. Patient agrees and understands plan 1. Right shoulder pain (M25.511: Pain in right shoulder) Please follow-up with your orthopedic physician in 3 to 5 days. Please contact their office to schedule a follow-up appointment. You were seen and evaluated in regards to right shoulder pain and right hip pain without any acute injury. We discussed to continue with ice heat elevation Tylenol and or your tramadol as prescribed to you by your primary care provider. I am able to prescribe prednisone 40 mg daily x 5 days to the pharmacy and which will help with inflammation and discomfort or arthritic changes a (more content not included)... Normal [facility] Comment on above: Result Comment: Elec tronically Signed By: Anmol CASTANO, Ramses Rodríguez.br\Date and Time Signed: 04/04/24 18:31 EDT Stress EKG Tracingson 2023 Stress EKG Tracings [id number]# 1.00TIFF Normal [facility] NM Myocardial Spect Rest/Str ess 1 Dayon 02-05-2024 NM Myocardial Spect Rest/Stress 1 Day Exam Date/Time: 02/01/2024 10:13 EDT Reason for Exam: R93.1;Other (please specify) Report DATE: 02/01/2024 PROCEDURE: Treadmill nuclear stress test. REFERRING PHYSICIAN: Hi Rey M.D. INDICATION: Abnormal EKG. PROCEDURE DETAILS: The patient was stressed according to the Arian protocol and exercised for 4 minutes 43 seconds achieving a heart rate of 142 beats per minute which is 90% of maximal age-predicted heart rate and 6.6 METS. The patient had no symptoms. Blood pressure and heart rate response were appropriate. EKG was sinus bradycardia with premature ventricular contractions. With peak stress there were no significant EKG changes. Recovery phase was normal, but premature ventricular contractions returned during recovery. The patient received 10.2 mCi of Cardiolite for rest images and 30.3 mCi of Cardiolite for stress images. Review of raw images demonstrated significant breast attenuation. FINDINGS: Uptake of the tracer was homogenous with no identifiable ischemia or infarction. The TID ratio was 1.19. The ejection fraction was 63%. End-diastolic volume was 99 mL. CONCLUSIONS: Negative treadmill nuclear stress test. Overall low-risk stress. cc: Hi Rey M.D. FINAL REPORT Signed (Electronic Signature): 02/05/2024 12:52 pm Signed by: Riccardo Resendiz MD Transcribed by: KRISHNA Technologist: JOHNNY Technical Comments Rest Dose (mCi Tc99m Cardiolite): 10.2 Stress Dose (mCi Tc99M Cardiolite): 30.3 Normal [facility] Consent for Treatmenton 01-13 Consent for Treatment [id number]#1 .00TIFF [facility] Insurance Correspondenceon 0 01-14-2024 Insurance Correspondence [id number]# 1.00TIFF Normal [facility] Consent for Treatmenton 12-15 Consent for Treatment [id number]#1 .00TIFF Normal [facility] Heart and Vascular Office/Cl inic Noteon 01-12-2024 Heart and Vascular Office/Clinic Note Chief Complaint New Patient- Abnormal Testing History of Present Illness The patient is a 63-year-old female with past medical history of obesity, sleep apnea, asthma, fibromyalgia, who was referred due to abnormal echocardiogram, which demonstrated evidence of severe inferior wall hypokinesis, the echocardiogram was done, as the patient believes, in a context of bradycardia. In terms of symptoms, the patient reports occasional right-sided chest discomfort, when she is anxious. She specifically denies any exertional symptoms including chest pain, tightness, shortness of breath, dizziness or lightheadedness, syncope or presyncope. She recalls some episodes when she fell in the end of last year, when her sister . She does not recall episodes of chest tightness or discomfort. Family history is significant for strong precocious CAD, with her brother having coronary artery bypass grafting surgery at the age of 61, father at 48 years old with coronary artery bypass grafting surgery. Physical activity level is good. The patient states she is moving furniture without any problems. She also reports what sounds like unremarkable left heart catheterization, which was performed about 3 years ago in [place]. Review of Systems PHQ Score Initial Depression Screen Score: 0 SCORE ROS - Provider Constitutional: no fever, no chills, no fatigue Skin:no rash, no lesions ENMT: no ear pain, no sore throat, no congestion. Respiratory: no shortness of breath, no cough, no wheezing. Cardiovascular: no chest pain, no palpitations, no edema. Gastrointestinal: no nausea, no vomiting, no diarrhea, no GI bleeding. Genitourinary: no dysuria, no frequencyno hematuria Musculoskeletal: no back pain, no trauma. Neurologic: no headache, no dizziness, no numbness, no weakness. Psychiatric: no sleeping problems, no irritability, no mood swings/depression. Heme/Lymph: no bleeding tendency, no bruising tendency, no petechiae, Allergy/Immuno logic: no seasonal allergies, no food allergies, no recurrent infections Physical Exam Vitals & Measurements HR: 72(Peripheral) BP: 122/72 SpO2: 97% HT: 64 in HT: 162 cm WT: 99.8 kg WT: 219.56 lb BMI: 38.03 General: alert, no acute distress Neck: Supple, noJVD nocarotid bruit Cardiovascular: regular rate and rhythm, no murmur normal peripheral perfusion Respiratory: Lungs CTAB, respirations non labored Extremities: no edema left lower extremity. no edema right lower extremity Neurological: oriented x 4, LOC appropriate for age, speech normal Skin: Warm, dry, intact- no rash or concerning lesions Procedure Holter monitor from November 2023 showed predominantly sinus rhythm with average rate of 53 bpm, 7 episodes of paroxysmal supraventricular tachycardia, longest episode of 1 minute 26 seconds. There was 1 episode of idioventricular rhythm of 3 beats duration, 1 episode labeled junctional rhythm, which was questionable. There was no evidence of atrial fibrillation. There is a low burden of PVCs of less than 1%. (12/23/2023 11:51 EDT Echo Transthoracic Complete) Adult Echocardiogram Report Name: RHONDA HULL Study Date: 12/23/2023 11:17 AM BP: 146/71 mmHg Patient Location: [facility] HR: 50 : 1960 Gender: Female Height: 64 in Age: 63 yrs Ethnicity: [facility] Weight: 217 lb Reason For Study: Precordial pain R07.2 BSA: 2.0 m2 History: No cardiac history per patient,Morbid obesity Ordering Physician: ALYSE^DEE^PASTRY CHEF-C Referring Physician: DEE CULLEN Performed By: Milagros Lund, SONIAMS, RVT Interpretation Summary Left ventricular systolic function is normal. Ejection Fraction = 55-60%. There is inferior wall severe hypokinesis Grade I diastolic dysfunction, (abnormal relaxation pattern). There is Trace mitral regurgitation. [1] Assessment/Plan 1. Abnormal echocardiogram (R93.1: Abnormal findings on diagnostic imaging of heart and coronary circulation) Echocardiogram shows evidence of inferior wall akinesia, preserved LVEF. The patient reports no exertional symptoms. At this juncture, I would like to obtain a myocardial perfusion imaging study to further look into it. Old records from [place] will be requested, as well. 2. Abnormal Holter monitor. It did demonstrate evidence of paroxysmal supraventricular tachycardia, however, this did not appear to be symptomatic. I do not think any specific intervention is necessary to address that. Orders: ECG 12 Lead Adult ECG today demonstrated sinus bradycardia at 50 bpm, no evidence of Q waves or ST/T wave deviations, consistent with ischemia. Follow-up No qualifying data available Problem List/Past Medical History Ongoing Asthma Fibromyalgia Sleep apnea Historical No qualifying data Procedure/Surgical History Colonoscopy (07/21/2011), section, Cholecystectomy, Plastic surgery, Tonsillectomy. Medications albuterol 0.083% Inh Leila 3 mL, 2.5 mg= 3 mL, NEB, q6hr, PRN ProAir HFA (more content not included)... Normal [facility] Comment on above: Result Comment: Elec tronically Signed By: Krissy COUCH, Hi Nogueira\.br\Date and Time Signed: 01/12/24 09:58 EDT Physician Orderon 01-12-2024 Physician Order [id number]#1 .00TIFF [facility] Referrals Officeon 4 Referrals Office patient scheduled with Dr Rey 01-12-24 @ 915a [id number]#1 .00TIFF [facility] Consent for Treatmenton 12-13 Consent for Treatment [id number]#1 .00TIFF [facility] MM screening mammo BI w/CADo n 12-18-2023 MM screening mammo BI w/CAD [facility] [place] [address] Mammography Report Signed Patient: Rhonda Anderson MR#: [id number] : 1960 Acct:[id number] Age/Sex: 62 / F ADM Date: 12/18/23 Loc: [place] Room: Type: [facility] Attending Dr: Referral Self Copies to: Adrian Faria II, MD SELF,REFERRAL Ordering Provider: SELF,REFERRAL Date of Service: 12/18/23 MM/MM screening mammo BI w/CAD: SCREENING CLINICAL DATA: Screening for malignancy. SCREENING MAMMOGRAM - FULL FIELD DIGITAL WITH TOMOSYNTHESIS AND CAD COMPARISON:Mammograms dating back to 2019 Tomosynthesis craniocaudal and mediolateral oblique views of both breasts were obtained using low- dose digital technique. This examination was reviewed with the aid of CAD. FINDINGS: The breast tissue is composed of scattered fibroglandular densities. There are no dominant masses, typically malignant calcifications or architectural distortion. There has been no significant interval change. MM/MM screening mammo BI w/CAD IMPRESSION: NO MAMMOGRAPHIC EVIDENCE OF MALIGNANCY. ROUTINE FOLLOW-UP IS RECOMMENDED IN ONE YEAR. RESULT CODE: 1 Negative DENSITY CODE: 2 (approximately 25-50% glandular) FOLLOW UP: 1YR The false-negative rate of mammography is approximately 10-percent. Management of a palpable abnormality must be based on clinical grounds. Patient was entered into a reminder system with a target due date for the next mammogram. Impression dictated by: Ricardo Millan Jr., Jaimie12/18/2023 8:59 AM Dictation Location: [facility] Transcribed By: [facility] 12/18/23 0859 Dictated By: Ricardo Millan Jr, DO 12/18/23 0858 Signed By: 12/18/23 0859 Normal [facility] Physician Orderon 12-03-2023 Physician Order [id number]#1 .00TIFF Normal [facility] CHEMISTRYOrdered By: SYSTEM SYSTEM on 11-19-2023 Albumin [Mass/Vol] 3.6 g/dL Normal 3.3 - 5.0 gm/dL Remisol Chem Albumin/Globulin [Mass ratio] 1.0 {ratio} Low 1.1 - 2.2 Remisol Chem ALP [Catalytic activity/Vol] 74 [iU]/d Normal 21 - 98 Int._Unit/L Remisol Chem ALT No additional P-5'-P [Catalytic activity/Vol] 26 [iU]/d Normal 6 - 46 Int._Unit/L Remisol Chem Anion gap [Moles/Vol] 10 mmol/L Normal 6 - 16 mEq/L R emisol Chem AST [Catalytic activity/Vol] 33 [iU]/d Normal 5 - 43 Int._Unit/L Remisol Chem Bilirubin [Mass/Vol] 0.6 mg/dL Normal 0.0 - 1 .1 mg/dL Remisol Chem Calcium [Mass/Vol] 9.3 mg/dL Normal 8.9 - 11. 1 mg/dL [facility] Chloride [Moles/Vol] 107 mmol/L Normal 101 - 1 11 mmol/L Rem[facility] CO2 [Moles/Vol] 29 mmol/L Normal 21 - 31 mmol/L [facility] Creatinine [Mass/Vol] 1.1 mg/dL Normal 0.5 - 1.3 mg/dL Rem[facility] Chem eGFR 56 mL/min/1.73 m2 Low >=59mL/min /1 .73 m2 [facility] Globulin (S) [Mass/Vol] 3.7 g/dL Normal 1.4 - 4.0 gm/dL Rem[facility] Glucose [Mass/Vol] 89 mg/dL Normal 55 - 199 mg/dL Rem[facility] Potassium [Moles/Vol] 4.5 mmol/L Normal 3.5 - 5.3 mmol/L Remisol Chem Protein [Mass/Vol] 7.3 g/dL Normal 6.0 - 7.8 gm/dL Rem[facility] Chem Sodium [Moles/Vol] 141 mmol/L Normal 135 - 145 mmol/L Rem[facility] Chem Urea nitrogen [Mass/Vol] 19 mg/dL Normal 5 - 21 mg/dL Rem[facility] Urea nitrogen/Creatinine [Mass ratio] 17 mg/mg Normal 10 - 20 Rem[facility] CMPon 11-19-2023 Albumin [Mass/Vol] 3.6 g/dL Normal 3.3-5.0 [facility] Comment on above: Performed By: #### 1 [id number], [id number] #### [facility] [address] [place] [address] Albumin/Globulin (S) [Mass conc ratio] 1.0 Low 1.1-2.2 [facility] Comment on above: Performed By: #### 1 [id number], [id number] #### [facility] [address] [place] [address] ALP [Catalytic activity/Vol] 74 Int._Unit/L Normal 21-98 [facility] Comment on above: Performed By: #### 1 [id number], [id number] #### [facility] [address] [place] [address] ALT No additional P-5'-P [Catalytic activity/Vol] 26 Int._Unit/L Normal 6-46 [facility] Comment on above: Performed By: #### 1 [id number], [id number] #### [facility] [address] [place] [address] Anion gap [Moles/Vol] 10 mmol/L Normal 6-16 [facility] Comment on above: Performed By: #### 1 [id number], [id number] #### [facility] [address] [place] [address] AST [Catalytic activity/Vol] 33 Int._Unit/L Normal 5-43 [facility] Comment on above: Performed By: #### 1 [id number], [id number] #### [facility] [address] [place] [address] Bilirubin [Mass/Vol] 0.6 mg/dL Normal 0.0-1.1 [facility] Comment on above: Performed By: #### 1 [id number], [id number] #### [facility] [address] [facility] [place] [address] Calcium [Mass/Vol] 9.3 mg/dL Normal 8.9-11.1 [facility] Comment on above: Performed By: #### 1 [id number], [id number] #### [facility] [address] [place] [address] Chloride [Moles/Vol] 107 mmol/L Normal 101-111 [facility] Comment on above: Performed By: #### 1 [id number], [id number] #### [facility] [address] [place] [address] CO2 [Moles/Vol] 29 mmol/L Normal 21-31 [facility] Comment on above: Performed By: #### 1 [id number], [id number] #### [facility] [address] [place] [address] Creatinine [Mass/Vol] 1.1 mg/dL Normal 0.5-1.3 [facility] Comment on above: Performed By: #### 1 [id number], [id number] #### [facility] [address] [place] [address] Globulin (S) [Mass/Vol] 3.7 g/dL Normal 1.4-4.0 [facility] Comment on above: Performed By: #### 1 [id number], [id number] #### [facility] [address] [place] [address] Glucose [Mass/Vol] 89 mg/dL Normal 55-199 [facility] Comment on above: Performed By: #### 1 [id number], [id number] #### [facility] [address] [place] [address] Potassium [Moles/Vol] 4.5 mmol/L Normal 3.5-5.3 [facility] Comment on above: Performed By: #### 1 [id number], [id number] #### [facility] [address] [place] [address] Protein [Mass/Vol] 7.3 g/dL Normal 6.0-7.8 [facility] Comment on above: Performed By: #### 1 [id number], [id number] #### [facility] [address] [place] [address] Sodium [Moles/Vol] 141 mmol/L Normal 135-145 [facility] Comment on above: Performed By: #### 1 [id number], [id number] #### [facility] [address] [place] [address] Urea nitrogen [Mass/Vol] 19 mg/dL Normal 5-21 [facility] Comment on above: Performed By: #### 1 [id number], [id number] #### [facility] [address] [place] [address] Urea nitrogen/Creatinine [Mass ratio] 17 No Units Normal 10-20 [facility] Comment on above: Performed By: #### 1 [id number], [id number] #### [facility] [address] [place] [address] Consent for Treatmenton Consent for Treatment [id number]#1 .00TIFF Normal [facility] Physician Orderon 11-19-2023 Physician Order [id number]# 1.00TIFF Normal [facility] eGFRon 11-19-2023 eGFR 56 mL/min/1.73 m2 Low >=59 [facility] Comment on above: Order Comment: Order added by Discern Expert. Performed By: #### 1 [id number], [id number] #### [facility] [address] [place] [address] C Urineon 08-15-2023 Bacteria identified Cx Nom (U) Microbiology PROCEDURE: Urine Culture [R1] SOURCE: U CleanCatch BODY SITE: COLLECTED DATE/TIME: 08/13/2023 15:31 EST RECEIVED DATE/TIME: 08/13/2023 18:07 EST START DATE/TIME: 08/13/2023 18:07 EST FREE TEXT SOURCE: Luis CASTANO, Luis Eduardo Smith PA-C, Luis Eduardo FINAL REPORTS Final Report [] Verified Date/Time: 08/15/2023 11:52 EST >100,000 cfu/ml Escherichia coli SUSCEPTIBILITY RESULTS LEGEND: S=Susceptible, N/R=Not Reported, Blank=Data not available, or drug not advisable or tested, I=Intermediate, ESBL=Extended spectrum beta-lactamase, R=Resistant, TFG=Thymidine-depende nt strain, YUVAL=Beta-lactamase positive, GATO=mcg/m;(mg/L), S*=Predicted susceptible interp, R*=Predicted resistant interp EC Antibiotic GATO Dilutn GATO Interp Amikacin <=16 S Ampicillin >16 R Ampicillin/ >16/8 R Sulbactam Aztreonam <=4 S Cefazolin 4 S Cefepime <=2 S Cefoxitin <=8 S Ceftazidime <=1 S Ceftazidime/ <=8 S Avibactam Ceftriaxone <=1 S Ciprofloxacin <=1 S Ertapenem <=0.5 S Gentamicin <=4 S Levofloxacin <=2 S Meropenem <=1 S Nitrofurantoin <=32 S Piperacillin/ <=16 S Tazobactam Tetracycline <=4 S Tigecycline <=2 S Tobramycin <=4 S Trimethoprim/ <=2/38 S Sulfa Performing Locations R1: This test was performed at: [facility], [address] [place] [address], [phone] , [place], [facility] Comment on above: Performed By: #### 1 [id number], [id number] #### [facility] [address] [place] [address] ED Note-Physicianon 08-15-20 ED Note-Physician Cultures do come amrik k positive for E. coli. Patient was treated with Keflex which is indeterminant on the culture reports. I did call the patient and she states that she is really not feeling any better therefore we will cover her with Omnicef this was sent to her pharmacy she is to follow-up closely with her primary care physician she is encouraged to drink plenty of fluids she is comfortable with this treatment plan. Normal [facility] Comment on above: Result Comment: Elec tronically Signed By: Wes Morrison DO\.sylvie\Date and Time Signed: 08/15/23 15:58 EST Auto Diffon 08-13-2023 Basophils/100 WBC (Bld) 0.2 % Normal 0.0-2.0 [facility] Comment on above: Order Comment: Order Added by Discern Expert. Performed By: #### 1 [id number], [id number] #### [facility] [address] [place] [address] Basophils/Leukocytes Auto (Bld) [Pure # fraction] 0.0 E9/L Normal 0.0-0.2 [facility] Comment on above: Order Comment: Order Added by Discern Expert. Performed By: #### 1 [id number], [id number] #### [facility] [address] [place] [address] Eosinophils/100 WBC (Bld) 0.0 % Normal 0.0-8.0 [facility] Comment on above: Order Comment: Order Added by Discern Expert. Performed By: #### 1 [id number], [id number] #### [facility] [address] [place] [address] Eosinophils/Leukocyte s Auto (Bld) [Pure # fraction] 0.0 E9/L Normal 0.0-0.5 [facility] Comment on above: Order Comment: Order Added by Discern Expert. Performed By: #### 1 [id number], [id number] #### [facility] [address] [place] [address] Lymphocytes/100 WBC (Bld) 4.0 % Low 14.0-50.0 [facility] Comment on above: Order Comment: Order Added by Discern Expert. Performed By: #### 1 [id number], [id number] #### [facility] [address] [place] [address] Lymphocytes/Leukocyte s Auto (Bld) [Pure # fraction] 0.8 E9/L Low 1.0-4.0 [facility] Comment on above: Order Comment: Order Added by Discern Expert. Performed By: #### 1 [id number], [id number] #### [facility] [address] [place] [address] Monocytes/100 WBC (Bld) 4.6 % Normal 4.0-14.0 [facility] Comment on above: Order Comment: Order Added by Discern Expert. Performed By: #### 1 [id number], [id number] #### [facility] [address] [place] [address] Monocytes/Leukocytes Auto (Bld) [Pure # fraction] 0.9 E9/L Normal 0.2-1.0 [facility] Comment on above: Order Comment: Order Added by Discern Expert. Performed By: #### 1 [id number], [id number] #### [facility] [address] [place] [address] Neutrophils/100 WBC (Bld) 91.2 % High 36.0-75.0 [facility] Comment on above: Order Comment: Order Added by Discern Expert. Performed By: #### 1 [id number], [id number] #### [facility] [address] [place] [address] Neutrophils/Leukocyte s Auto (Bld) [Pure # fraction] 17.0 E9/L High 2.0-7.5 [facility] Comment on above: Order Comment: Order Added by Discern Expert. Performed By: #### 1 [id number], [id number] #### [facility] [address] [place] [address] BMPon 08-13-2023 Creatinine [Mass/Vol] 1.3 mg/dL Normal 0.5-1.3 [facility] Comment on above: Performed By: #### 1 [id number], [id number] #### [facility] [address] [place] [address] Urea nitrogen [Mass/Vol] 20 mg/dL Normal 5-21 [facility] Comment on above: Performed By: #### 1 [id number], [id number] #### [facility] [address] [place] [address] Urea nitrogen/Creatinine [Mass ratio] 15 No Units Normal 10-20 [facility] Comment on above: Performed By: #### 1 [id number], [id number] #### [facility] [address] [facility] [address] Anion gap [Moles/Vol] 12 mmol/L Normal 6-16 [facility] Comment on above: Performed By: #### 1 [id number], [id number] #### [facility] [address] [facility] [place] [address] Calcium [Mass/Vol] 9.0 mg/dL Normal 8.9-11.1 [facility] Comment on above: Performed By: #### 1 [id number], [id number] #### [facility] [address] [facility] [address] Chloride [Moles/Vol] 104 mmol/L Normal 101-111 [facility] Comment on above: Performed By: #### 1 [id number], [id number] #### [facility] [address] [address] CO2 [Moles/Vol] 24 mmol/L Normal 21-31 [facility] Comment on above: Performed By: #### 1 [id number], [id number] #### [facility] [address] [facility] [address] Glucose [Mass/Vol] 111 mg/dL Normal 55-199 [facility] Comment on above: Result Comment: If t his glucose result represents a fasting glucose, interpretation should refer to the following reference range: 55-99 mg/dL Performed By: #### 1 [id number], [id number] #### [facility] [address] [address] Potassium [Moles/Vol] 3.3 mmol/L Low 3.5-5.3 [facility] Comment on above: Performed By: #### 1 [id number], [id number] #### [facility] [address] [address] Sodium [Moles/Vol] 137 mmol/L Normal 135-145 [facility] Comment on above: Performed By: #### 1 [id number], [id number] #### [facility] [address] [place] [address] CBC w/ Auto Diffon Erythrocyte distribution width (RBC) [Ratio] 14.5 % High 10.9-14.2 [facility] Comment on above: Performed By: #### 1 [id number], [id number] #### [facility] Laboratory [address] [place] [address] Hematocrit (Bld) [Volume fraction] 43.1 % Normal 34.0-46.0 [facility] Comment on above: Performed By: #### 1 [id number] #### [facility] [address] [place] [address]34 Hemoglobin (Bld) [Mass/Vol] 14.0 g/dL Normal 12.0-16.0 [facility] Comment on above: Performed By: #### 1 [id number] #### [facility] [address] [place] [address] 59913 MCH (RBC) [Entitic mass] 29.3 pg Normal 27.0-34.0 [facility] Comment on above: Performed By: #### 1 [id number] #### [facility] [address] [place] [address] 03560 MCHC (RBC) [Mass/Vol] 32.5 g/dL Normal 31.4-36.0 [facility] Comment on above: Performed By: #### 1 [id number] #### [facility] [address] [place] [address] 85338 MCV (RBC) [Entitic vol] 90.3 fL Normal 80.0-100.0 [facility] Comment on above: Performed By: #### 1 [id number] #### [facility] [address] [place] [address] 08509 Platelet mean volume (Bld) [Entitic vol] 9.0 fL Normal 6.4-10.8 [facility] Comment on above: Performed By: #### 1 [id number], [id number] #### [facility] [address] [place] [address] Platelets (Bld) [#/Vol] 191.0 E9/L Normal 150.0-500.0 [facility] Comment on above: Performed By: #### 1 [id number], [id number] #### [facility] [address] [place] [address] RBC (Bld) [#/Vol] 4.8 E12/L Normal 4.3-5.9 [facility] Comment on above: Performed By: #### 1 [id number], [id number] #### [facility] [address] [place] [address] WBC corrected for nucl RBC Auto (Bld) [#/Vol] 18.7 E9/L High 4.0-11.0 [facility] Comment on above: Result Comment: Slid e reviewed by AG. Performed By: #### 1 [id number], [id number] #### [facility] [address] [place] [address] CT Head or Brain w/o Contras ton 08-13-2023 CT Head or Brain w/o Contrast Exam Date/Time: 08/13/2023 14:29 EST Reason for Exam: Delirium;Other (please specify) Report IMPRESSION: NEGATIVE NONCONTRAST HEAD CT. EXAM: CT Head or Brain w/o Contrast DATE: 08/13/2023 CLINICAL HISTORY: Delirium. COMPARISON: None available. TECHNIQUE: Routine. All CT scans at this facility use dose modulation, iterative reconstruction, and/or weight based dosing when appropriate to reduce radiation dose to as low as reasonably achievable. FINDINGS: There is no intracranial hemorrhage, mass effect, midline shift, extra-axial collection, evidence of hydrocephalus, skull fracture, or a recent ischemic infarct identified. There is no significant atrophy, or white matter changes, for age. The mastoid air cells and visualized paranasal sinuses are essentially clear. Ordering Provider: Luis Eduardo Smith FINAL REPORT Dictated: 08/13/2023 2:36 pm Raulito John MD Signed (Electronic Signature): 08/13/2023 2:36 pm Signed by: Raulito John MD Transcribed by: JAMES Technologist: JIMY Normal [facility] Capillary Glucose POCon 07-17 Glucose [Mass/Vol] 108 mg/dL High 55-99 [facility] Comment on above: Result Comment: Miguel Ángel clifton RN/ Performed By: #### 1 [id number] #### [facility] [address] [place] [address] Consent for Treatmenton 07-17 Consent for Treatment [id number] Normal [facility] Discharge Instructionson Discharge Instructions [id number] Normal [facility] ED Clinical Summaryon 2022 ED Clinical Summary [address] [address] ED Clinical Summary Person Information Name: RHONDA HULL [facility] Age: 62 Years : 1960 Sex: Female Language: Venezuelan PCP: ADRIAN FARIA MD Marital Status: Phone: [phone] Visit Id: Visit Reason: Fall; Syncope/Near syncope; Vomiting; Nausea; WEAK, VOMIT, DIZZY Speciality: Acuity: 3 Enc Type: Emergency Med Service: Emergency Arrival: 08/13/2023 13:12:04 Discharge: 08/13/2023 17:47:51 LOS: 000 04:35 Checkin: 08/13/2023 13:12:04 Checkout: 08/13/2023 17:47:51 Dispo Type: Home (Routine DC) EVENTS: Event Name Event Status Request Date/Time Start Date/Time Complete Date/Time Arrive Complete 08/13/2023 13:12:04 08/13/2023 13:12:04 08/13/2023 13:12:04 Document Home Meds Request 08/13/2023 13:12:04 Triage Complete 08/13/2023 13:12:04 08/13/2023 13:28:20 08/13/2023 13:28:20 Bed Assign Complete 08/13/2023 13:18:12 08/13/2023 13:18:12 08/13/2023 13:18:12 Dr Exam Complete 08/13/2023 13:18:12 08/13/2023 13:23:37 08/13/2023 13:23:37 RN Exam Complete 08/13/2023 13:18:12 08/13/2023 13:33:03 08/13/2023 13:33:03 Registration Complete 08/13/2023 13:23:37 08/13/2023 13:29:32 08/13/2023 13:29:32 Pending Labs Complete 08/13/2023 13:25:24 08/13/2023 13:25:24 08/13/2023 13:25:25 EKG Complete 08/13/2023 13:26:08 08/13/2023 13:28:14 Dr Exam Complete 08/13/2023 13:26:33 08/13/2023 13:26:33 08/13/2023 13:26:33 Reg Complete Request 08/13/2023 13:29:32 Reg Bed Request Complete 08/13/2023 13:29:32 08/13/2023 13:29:32 08/13/2023 13:29:32 Fall Risk Request 08/13/2023 13:33:04 Meds Admin Complete 08/13/2023 13:45:09 08/13/2023 14:12:49 Pending Labs Request 08/13/2023 13:45:09 Lab Complete 08/13/2023 13:45:09 08/13/2023 15:44:00 Urine Collect Complete 08/13/2023 13:45:09 08/13/2023 15:44:00 X-Ray Complete 08/13/2023 13:45:09 08/13/2023 14:11:55 08/13/2023 14:20:08 CT Complete 08/13/2023 13:45:09 08/13/2023 14:20:14 08/13/2023 14:29:52 Pending Labs Complete 08/13/2023 13:55:01 08/13/2023 13:55:01 08/13/2023 14:10:10 Lab Complete 08/13/2023 13:55:01 08/13/2023 13:55:01 08/13/2023 14:10:10 Wet Read Request 08/13/2023 14:20:08 Pending Labs Complete 08/13/2023 14:21:09 08/13/2023 14:21:09 08/13/2023 14:21:17 Lab Complete 08/13/2023 14:21:09 08/13/2023 14:21:09 08/13/2023 14:21:17 Meds Admin Complete 08/13/2023 15:12:55 08/13/2023 15:20:24 Pending Labs Complete 08/13/2023 15:25:50 08/13/2023 15:25:50 08/13/2023 15:25:51 Pending Labs Collected 08/13/2023 15:35:55 08/13/2023 15:35:55 Lab Collected 08/13/2023 15:35:55 08/13/2023 15:35:55 Meds Admin Complete 08/13/2023 16:32:54 08/13/2023 17:09:43 Discharge Complete 08/13/2023 17:11:11 08/13/2023 17:47:59 08/13/2023 17:47:59 Transfer Complete 08/13/2023 17:47:59 08/13/2023 17:47:59 08/13/2023 17:47:59 ADDRESS: [address] [place] [address] [address] [facility] [id number] PHYS DOC NOTES: MEDICAL INFORMATION: Prescriptions Given: New Medications [id number], [address] [place], [place] [id number], [phone] cephalexin (Keflex 500 mg Cap) 1 Capsules By Mouth 3 times a day for 5 Days. Refills: 0. ondansetron (Zofran ODT 4 mg Tab-Dis) 1 Tablets By Mouth 3 times a day. Refills: 0. Medications to Continue Taking That Have Changed [id number], [address], [place] [id number], [phone] START: meclizine (meclizine 25 mg Tab) 1 Tablets By Mouth 3 times a day as needed Dizziness. Refills: 0. Other Medications START: meclizine (meclizine 25 mg Tab) 1 Tablets By Mouth every day. Medications to Continue with No Changes Other Medications albuterol (albuterol 0.083% Inh Leila 3 mL) 3 Milliliter Nebulized inhalation (aerosol) every 6 hours as needed as needed for wheezing. albuterol (ProAir HFA 90 mcg/inh inhalation aerosol) 2 Puffs Inhalation every 4 hours as needed as needed for wheezing. gabapentin (gabapentin 300 mg Cap) 2 Capsules By Mouth 2 times a day. tramadol (tramadol 50 mg oral tablet) zolpidem (Ambien 10 mg Tab) 1 Tablets By Mouth once a day (at bedtime) as needed for sleep. PATIENT EDUCATION INFORMATION: Instructions: Urinary Tract Infection, Adult Follow up: With: Address: When: ADRIAN FARIA [address] [place] [id number] Business (1) In 3 days 08/16/2023 DIAGNOSIS: Bacterial infection, unspecified; UTI (urinary tract infection), bacterial Normal [facility] ED Note-Physicianon 08-13-20 ED Note-Physician Basic Information Time Seen: Luis Eduardo Smith PA-C 08/13/2023 13:23 Chief Complaint pt arrives via [facility] after beginning to feel weak at 0600 this am. Pt reports falling 3 times this am. Denies anticoags. C/O n/v. Denies CP/SOB. FSBS 108 upon arrival. c/o feeling light headed prior to falling this am. History of Present Illness 63-year-old female comes to the ED for evaluation of generalized illness. The patient states she felt generally unwell overnight with weakness fatigue nausea. She woke this morning feeling weak and dizzy. She states she felt feverish but no documented temperatures. No cough, congestion or shortness of breath. No chest pain. She does question some urinary symptoms. No abdominal pain. No diarrhea constipation. She does describe some near falls from her dizziness/lightheaded ness. No injuries from his falls. No ataxia. Review of Systems A 10 point review of systems is negative except as noted above. Medical and Surgical History: Reviewed and noted Social history: Lives at home Tobacco: Denies Physical Exam Vitals & Measurements T: 37.0 ?C(Oral) HR: 82(Monitored) RR: 18 BP: 123/78 SpO2: 95% HT: 162 cm WT: 101.5 kg BMI: 38.68 Nurses notes and vital signs reviewed and patient is not hypoxic. General: The patient appears well and in no significant distress Patient is resting comfortably on the exam bed. Skin: Warm, dry, no pallor noted. Head: Atraumatic. Neck: No JVD. Eye: Normal conjunctiva. No nystagmus Ears, Nose, Mouth, and Throat: Moist mucous membranes Cardiovascular: Strong distal pulses. Chest wall: Respiratory: Respirations are nonlabored. Lungs clear to auscultation. Back: Normal range of motion, no CVA tenderness. Musculoskeletal: Normal ROM with no gross deformity. Gastrointestinal: Soft and nontender. Urological: Neurological: Awake and alert. No focal deficits. Follows commands. GCS 15. NIHSS 0 performed at 1323 Psychiatric: Cooperative. Medical Decision Making Patient presents with generalized illness. She complains of weakness and fatigue, nausea and vomiting, feeling lightheaded dizzy. NIHSS 0. Not a tPA candidate. On her initial evaluation she had no neurological deficit but given her age and comorbidities stroke work-up was pursued. CT of the brain is negative per radiology. Chest x-ray with no acute findings. She was treated IV fluids meclizine and Zofran. On repeat evaluation she is feeling much improved. Laboratory studies are reviewed. Does have a leukocytosis. Urine is positive for infection. Initial troponin was mildly elevated at 34.9, she was kept for 3 hours shows no significant increase. She has no associated chest pain or shortness of breath. Results are discussed with her. She is currently eating and drinking and requesting discharge home which is reasonable. She is starting oral antibiotics and is to follow-up with her PCP. Patient was encouraged to return to the ED if symptoms worsen or change. Assessment/Plan Bacterial infection, unspecified (A49.9: Bacterial infection, unspecified) UTI (urinary tract infection), bacterial (N39.0: Urinary tract infection, site not specified) Orders: acetaminophen, 975 mg = 3 tab(s), Tab, Oral, Once, Stop date 08/13/23 15:12:00 EST, STAT, Start date 08/13/23 15:12:00 EST, 08/13/23 15:12:00 EST ceftriaxone + Sodium Chloride 0.9% intravenous solution 50 mL, 1,000 mg = 1 EA, IV Piggyback, Once, Stop date 08/13/23 16:32:00 EST, STAT, Start date 08/13/23 16:32:00 EST, 100 mL/hr, Infuse over 30 minute(s), 08/13/23 16:32:00 EST cephalexin, 500 mg = 1 cap(s), Oral, TID, X 5 day(s), # 15 cap(s), Refills(s) 0, Pharmacy: [facility][id number], 162, cm, 08/13/23 13:28:00 EST, Height/Length Dosing, 101.5, kg, 08/13/23 13:28:00 EST, Weight Dosing meclizine, 25 mg = 2 tab(s), Tab, Oral, Once, Stop date 08/13/23 13:44:00 EST, STAT, Start date 08/13/23 13:44:00 EST, 08/13/23 13:44:00 EST meclizine, 25 mg = 1 tab(s), Oral, TID, PRN Dizziness, # 15 tab(s), Refills(s) 0, Pharmacy: [facility] #[id number], 162, cm, 08/13/23 13:28:00 EST, Height/Length Dosing, 101.5, kg, 08/13/23 13:28:00 EST, Weight Dosing ondansetron, 4 mg = 2 mL, Injection, IV Push, Once, Stop date 08/13/23 13:44:00 EST, STAT, Start date 08/13/23 13:44:00 EST, 08/13/23 13:44:00 EST ondansetron, 4 mg = 1 tab(s), Oral, TID, # 15 tab(s), Refills(s) 0, Pharmacy: [facility] #[id number], 162, cm, 08/13/23 13:28:00 EST, Height/Length Dosing, 101.5, kg, 08/13/23 13:28:00 EST, Weight Dosing Sodium Chloride 0.9% intravenous solution, 1,000 mL, Soln-IV, IV, Once, Stop date 08/13/23 13:44:00 EST, STAT, Start date 08/13/23 13:44:00 EST, Infuse over 61, minute(s) Automated Diff Basic Metabolic Panel CBC w/ Auto Diff CT Head or Brain w/o Contrast eGFR Extra SST Tube PT & PTT Troponin 0 Hr. Troponin 3 Hr. Troponin 6 Hr. Troponin 9 Hr. UA With Cult Reflex Urine Culture XR Chest Single View Medications Administered Given acetaminophen 325 mg Tab, 975 mg, Oral ceftriaxone additive 1000 mg + S (more content not included)... Normal [facility] Comment on above: Result Comment: Elec tronically Signed By: Luis Eduardo Smith PA-C\.br\Date and Time Signed: 08/13/23 17:14 EST\.br\Electronically Co-Signed By: Jamal Gardner DO\.br\Date and Time Co-Signed: 08/13/23 21:27 EST ED Patient Education Noteon 08-13-2023 ED Patient Education Note Obstetrics and Gynecology Urinary Tract Infection, Adult A urinary tract infection (UTI) is an infection of any part of the urinary tract. The urinary tract includes the kidneys, ureters, bladder, and urethra. These organs make, store, and get rid of urine in the body. An upper UTI affects the ureters and kidneys. A lower UTI affects the bladder and urethra. What are the causes? Most urinary tract infections are caused by bacteria in your genital area around your urethra, where urine leaves your body. These bacteria grow and cause inflammation of your urinary tract. What increases the risk? You are more likely to develop this condition if: ? You have a urinary catheter that stays in place. ? You are not able to control when you urinate or have a bowel movement (incontinence). ? You are female and you: ? Use a spermicide or diaphragm for control. ? Have low estrogen levels. ? Are . ? You have certain genes that increase your risk. ? You are sexually active. ? You take antibiotic medicines. ? You have a condition that causes your flow of urine to slow down, such as: ? An enlarged prostate, if you are male. ? Blockage in your urethra. ? A kidney stone. ? A nerve condition that affects your bladder control (neurogenic bladder). ? Not getting enough to drink, or not urinating often. ? You have certain medical conditions, such as: ? Diabetes. ? A weak disease-fighting system (immunesystem). ? Sickle cell disease. ? Gout. ? Spinal cord injury. What are the signs or symptoms? Symptoms of this condition include: ? Needing to urinate right away (urgency). ? Frequent urination. This may include small amounts of urine each time you urinate. ? Pain or burning with urination. ? Blood in the urine. ? Urine that smells bad or unusual. ? Trouble urinating. ? Cloudy urine. ? Vaginal discharge, if you are female. ? Pain in the abdomen or the lower back. You may also have: ? Vomiting or a decreased appetite. ? Confusion. ? Irritability or tiredness. ? A fever or chills. ? Diarrhea. The first symptom in older adults may be confusion. In some cases, they may not have any symptoms until the infection has worsened. How is this diagnosed? This condition is diagnosed based on your medical history and a physical exam. You may also have other tests, including: ? Urine tests. ? Blood tests. ? Tests for STIs (sexually transmitted infections). If you have had more than one UTI, a cystoscopy or imaging studies may be done to determine the cause of the infections. How is this treated? Treatment for this condition includes: ? Antibiotic medicine. ? Rfqw-sgp-ksmtqxl medicines to treat discomfort. ? Drinking enough water to stay hydrated. If you have frequent infections or have other conditions such as a kidney stone, you may need to see a health care provider who specializes in the urinary tract (urologist). In rare cases, urinary tract infections can cause sepsis. Sepsis is a life-threatening condition that occurs when the body responds to an infection. Sepsis is treated in the hospital with IV antibiotics, fluids, and other medicines. Follow these instructions at home: Medicines ? Take gnus-vem-omsjveo and prescription medicines only as told by your health care provider. ? If you were prescribed an antibiotic medicine, take it as told by your health care provider. Do not stop using the antibiotic even if you start to feel better. General instructions ? Make sure you: ? Empty your bladder often and completely. Do not hold urine for long periods of time. ? Empty your bladder after sex. ? Wipe from front to back after urinating or having a bowel movement if you are female. Use each tissue only one time when you wipe. ? Drink enough fluid to keep your urine pale yellow. ? Keep all follow-up visits. This is important. Contact a health care provider if: ? Your symptoms do not get better after 1?2 days. ? Your symptoms go away and then return. Get help right away if: ? You have severe pain in your back or your lower abdomen. ? You have a fever or chills. ? You have nausea or vomiting. Summary ? A urinary tract infection (UTI) is an infection of any part of the urinary tract, which includes the kidneys, ureters, bladder, and urethra. ? Most urinary tract infections are caused by bacteria in your genital area. ? Treatment for this condition often includes antibiotic medicines. ? If you were prescribed an antibiotic medicine, take it as told by your health care provider. Do not stop using the antibiotic even if you start to feel better. ? Keep all follow-up visits. This is important. This information is not intended to replace advice given to you by your health care provider. Make sure you discuss any questions you have with your health care provider. Document Revised: 04/12/2021 Document Revie (more content not included)... Normal [facility] ED Patient Summaryon 023 ED Patient Summary [place] [id number] Patient Discharge Instructions Person Information Name: RHONDA HULL Age: 62 Years Arrival Date: 08/13/2023 13:12:04 Discharge Diagnosis: Bacterial infection, unspecified; UTI (urinary tract infection), bacterial Primary Care Physician: ADRIAN FARIA MD Provider Information Primary Provider: Jamal Gardner DO Advanced Quality Cloth Tester:Luis Eduardo Smith PA-C The exam and treatment you received in the Emergency Department were for an urgent problem and are not intended as complete care. It is important that you follow up with a doctor, nurse practitioner, or physician?s distribution center assistant for ongoing care. If your symptoms become worse or you do not improve as expected and you are unable to reach your usual health care provider, you should return to the Emergency Department. We are available 24 hours a day. RHONDA HULL has been given the following list of patient education materials, prescriptions and follow-up instructions: Follow-up Instructions: With: Address: When: [place] [address] Spokeable (1) In 3 days 08/16/2023 In the event that this physician does not participate in your insurance network, please consult with your insurance company to find a nearby participating provider. Patient Education Materials: Urinary Tract Infection, Adult A MESSAGE TO ALL PATIENTS REGARDING OPIOIDS PRESCRIPTION OPIOIDS: WHAT YOU NEED TO KNOW Prescription opioids can be used to help relieve qhxeitip-ky-ilcihk pain and are often prescribed following a surgery or injury, or for certain health conditions. These medications can be an important part of the treatment but also come with serious risks. It is important to work with your healthcare provider to make sure you are getting the safest, most effective care. WHAT ARE THE RISKS AND SIDE EFFECTS OF OPIOID USE? Prescription opioids carry serious risks of addiction and overdose, especially with prolonged use. An opioid overdose, often marked by slowed breathing, can cause sudden . The use of prescription opioids can have a number of side effects as well, even when taken as directed: ? Tolerance?meaning you might need to take more of the medication for the same pain relief ? Physical dependence?meaning you have symptoms of withdrawal when a medication is stopped ? Increased sensitivity to pain ? Constipation ? Nausea, vomiting, and dry mouth ? Sleepiness and dizziness ? Confusion ? Depression ? Low levels of testosterone that can result in lower sex drive, energy, and strength ? Itching and sweating RISKS ARE GREATER WITH: ? History of drug misuse, substance use disorder, or overdose ? Mental health conditions (such as depression or anxiety) ? Sleep apnea ? Older age (65 years and older) ? Avoid alcohol while taking prescription opioids. Also, unless specifically advised by your health care provider, medications to avoid include: ? Benzodiazepines (such as Xanax or Valium) ? Muscle relaxants (such as Soma or Flexeril) ? Hypnotics (such as Ambien or Lunesta) ? Other prescription opioids KNOW YOUR OPTIONS Talk to your health care provider about ways to manage your pain that don?t involve prescription opioids. Some of these options may actually work better and have fewer risks and side effects. Options may include: ? Pain relievers such as acetaminophen, ibuprofen, and naproxen ? Some medication that are also used for depression or seizures ? Physical therapy and exercise ? Cognitive behavioral therapy, a psychological, goal-directed approach, in which patients learn how to modify physical, behavioral, and emotional triggers of pain and stress. IF YOU ARE PRESCRIBED OPIOIDS FOR PAIN: ? Never take opioids in greater amounts or more often than prescribed. ? Follow up with your primary health care provider. o Work together to create a plan on how to manage your pain. o Talk about ways to help manage your pain that don?t involve prescription opioids. o Talk about any and all concerns and side effects. ? Help prevent misuse and abuse o Never sell or share prescription opioids. o Never use another person?s prescription opioids. ? Store prescription opioids in a secure place and out of reach of others (this may include visitors, children, friends, and family). ? Safely dispose of unused prescription opioids: Find your community drug take-back program or your pharmacy mail-back program, or flush them down the toilet, following guidance from the Food and Drug Administration (www.fda.gov/Drugs/Re sourcesForYou). ? Visit www.cdc.gov/drugoverd ose to learn about the risks of opioids abuse and overdose. ? If you believe you may be struggling with addiction, tell your health neonatal intensive care unit nurse and ask for guidance or (more content not included)... Normal [facility] PT & PTTon 08-13-2023 aPTT Coag (PPP) [Time] 29.0 second(s) Normal 25.1-36.5 [facility] Comment on above: Result Comment: Para meter 15 days - 4 weeks 1 - 5 months 6 - 11 months 1 - 5 years 6 - 10 years 11 - 17 years PTT Mean: 35.4 (27.6-45.6) Mean: 33.5 (24.8-40.7) Mean: 32.4 (25.1-40.7) Mean: 31.6 (24.0-39.2) Mean: 31.6 (26.9-38.7) Mean: 31.0 (24.6-38.4) Pediatric Reference ranges were obtained from a study by Owen Lobo et al. prepared from 1437 samples obtained at 7 different centers using the same coagulation reagent and instrumentation as [facility] Currently there are no coagulation studies available worldwide for children to 14 days, and no normal ranges. Heparin therapeutic range (represented by Anti-Factor Xa activity of 0.2 - 0.4 U/mL) corresponds to PTT of 56.6 - 109.0 sec. Performed By: #### 1 [id number] #### [facility] [address] [place] [address] INR Coag (PPP) [Relative time] 1.2 {INR} Invalid Interpretation Code [facility] Comment on above: Result Comment: INR results are specifically intended to assess patients stabilized on long-term Anticoagulation therapy suggested INR?s ?Less Intensive Anticoagulation? 2.0 ? 3.0 Conventional Range 3.0 ? 4.5 Performed By: #### 1 [id number] #### [facility] [address] [place] [address] PT Coag (PPP) [Time] 12.9 second(s) High 9.4-12.5 [facility] Comment on above: Result Comment: 15 d ays - 4 weeks 1 - 5 months 6 -11 months 1- 5 years 6-10 years 11 -17 years Mean: 11.2 (9.5-12.6) Mean: 11.0 (9.7-12.8) Mean: 11.0 (9.8-13.0) Mean: 11.3 (9.9-13.4) Mean: 11.7 (10.0-14.6) Mean: 11.8 (10.0 - 14.1) Pediatric Reference ranges were obtained from a study by Owen Lobo et al. prepared from 1437 samples obtained at 7 different centers using the same coagulation reagent and instrumentation as [facility] Currently there are no coagulation studies available worldwide for children to 14 days, and no normal ranges. Performed By: #### 1 [id number], [id number] #### [facility] [address] [place] [address] Pre-Arrival Noteon 3 Pre-Arrival Note Pre-Arrival Summary Name: [facility], Current Date: 08/13/2023 13:18:40 EST Gender: Female Date of : Age: 62 Pre-Arrival Type: EMS ETA: 08/13/2023 13:34:00 EST Primary Care Physician: Presenting Problem: Weak/Fall Pre-Arrival User: Loulou Jones Referring Source: Location: [place] Completion Date/Time: 08/13/2023 00:00:00 [facility] Emergency Department Pre-Hospital Report Form Vital Signs: Pre-Hospital Report: Treatment in Route: Response to Treatment: Misc. Issues: Normal [facility] Troponin 0 Hr.on 08-13-2023 Troponin I.cardiac [Mass/Vol] 31.60 pg/mL High 10.10-27.10 [facility] Comment on above: Result Comment: The 95% CI (Confidence Interval) PPV (Positive Predictive Value) for myocardial infarction in females is 38 pg/mL, in males 51 pg/mL. The results should be used in conjunction with clinical conditions of myocardial infarction. (Access High Sensitivity Troponin I Instructions For Use, Business e via [place], April 2018) Performed By: #### 1 [id number], [id number] #### [facility] [address] [place] [address] Troponin 3 Hr.on 08-13-2023 Troponin I.cardiac [Mass/Vol] 34.90 pg/mL High 10.10-27.10 [facility] Comment on above: Result Comment: The 95% CI (Confidence Interval) PPV (Positive Predictive Value) for myocardial infarction in females is 38 pg/mL, in males 51 pg/mL. The results should be used in conjunction with clinical conditions of myocardial infarction. (Access High Sensitivity Troponin I Instructions For Use, [employer] via [place], April 2018) Performed By: #### 1 [id number], [id number] #### [facility] [address] [place] [address] UA With Cult Reflexon 2022 Bacteria LM Ql (Urine sed) TRACE Normal Trace [facility] Comment on above: Performed By: #### 1 [id number], [id number] #### [facility] [address] [place] [address] Bilirubin Ql (U) Negative Normal Negative [facility] Comment on above: Performed By: #### 1 [id number], [id number] #### [facility] [address] [place] [address] Clarity (U) CLOUDY Abnormal Clear [facility] Comment on above: Performed By: #### 1 [id number], [id number] #### [facility] [address] [place] [address] Color (U) DARK YELLO Abnormal Yellow [facility] Comment on above: Performed By: #### 1 [id number], [id number] #### [facility] [address] [place] [address] Epithelial cells.squamous LM.HPF (Urine sed) [#/Area] 5-8 Normal 0-2 [facility] Comment on above: Performed By: #### 1 [id number], [id number] #### [facility] [address] [place] [address] Glucose Test strip (U) [Mass/Vol] Negative Normal Negative [facility] Comment on above: Performed By: #### 1 [id number], [id number] #### [facility] [address] [place] [address] Hemoglobin Ql (U) 3+ Abnormal Negative [facility] Comment on above: Performed By: #### 1 [id number], [id number] #### [facility] [address] [place] [address] Ketones (U) [Mass/Vol] TRACE Abnormal Negative [facility] Comment on above: Performed By: #### 1 [id number], [id number] #### [facility] [address] [place] [address] [place].plasma/Lithiu m.RBC (Bld) [Mass ratio] >75 Abnormal 0-3 [facility] Comment on above: Performed By: #### 1 [id number], [id number] #### [facility] [address] [place] [address] Mucus Ql (Urine sed) TRACE Normal [facility] Comment on above: Performed By: #### 1 [id number], [id number] #### [facility] [address] [place] [address] Nitrite Ql (U) Positive Abnormal Negative [facility] Comment on above: Performed By: #### 1 [id number], [id number] #### [facility] [address] [place] [address] pH (U) 5.5 [pH] Invalid Interpretation Code 5.0-9.0 [facility] Comment on above: Performed By: #### 1 [id number], [id number] #### [facility] [address] [place] [address] Protein (U) [Mass/Vol] 2+ Abnormal Negative [facility] Comment on above: Performed By: #### 1 [id number], [id number] #### [facility] [address] [place] [address] Specific gravity (U) [Rel density] >=1.030 Invalid Interpretation Code 1.005-1.030 [facility] Comment on above: Performed By: #### 1 [id number], [id number] #### [facility] [address] [place] [address] Type of Urine collection method Clean Catch Normal [facility] Comment on above: Performed By: #### 1 [id number], [id number] #### [facility] [address] [place] [address] Urobilinogen Qn (U) 1.0 {Valeria'U}/dL Normal 0.0-1.0 [facility] Comment on above: Performed By: #### 1 [id number], [id number] #### [facility] [address] [place] [address] WBC Auto Ql (U) 2+ Abnormal Negative [facility] Comment on above: Performed By: #### 1 [id number], [id number] #### [facility] [address] [place] [address] WBC LM.HPF (Urine sed) [#/Area] /[HPF] Abnormal 0-5 [facility] Comment on above: Performed By: #### 1 [id number], [id number] #### [facility] [address] [place] [address] XR Chest Single Viewon 08-13 XR Chest Single View Exam Date/Time: 08/13/2023 14:20 EST Reason for Exam: Shortness of breath (SOB) Report IMPRESSION: NO EVIDENCE OF ACTIVE CARDIOPULMONARY DISEASE, BY PORTABLE CHEST RADIOGRAPHY. EXAM: XR Chest Single View DATE: 08/13/2023 2:11 PM CLINICAL HISTORY: Shortness of breath (SOB). COMPARISON: None available. TECHNIQUE: A portable upright AP radiograph of the chest was obtained. FINDINGS: The patient is mildly rotated to the right. There are shallow inspiratory volumes, without significant pulmonary infiltrate, cardiomegaly, vascular congestion, sizable pleural effusion, pneumothorax, or displaced fractures identified. Ordering Provider: Luis Eduardo Smith FINAL REPORT Dictated: 08/13/2023 3:00 pm Raulito John MD Signed (Electronic Signature): 08/13/2023 3:00 pm Signed by: Raulito John MD Transcribed by: JAMES Technologist: BRAXTON Technical Comments Radiation Dose: Ka,r in mGy = na DAP = na Normal [facility] eGFRon 08-13-2023 GFR/1.73 sq M.predicted among non-blacks MDRD (S/P/Bld) [Vol rate/Area] 46 mL/min/1.73 m2 Low >=59 [facility] Comment on above: Order Comment: Order added by Discern Expert. Result Comment: Online Media Director trisha kidney disease could be indicated at eGFR's of less than 60 mL/min/1.73m2. Kidney failure is indicated at less than 15 mL/min/1.73m2. Performed By: #### 1 [id number], [id number] #### [facility] [address] [place] [address] XR KNEE RIGHT 1-2 VIEWSon XR KNEE RIGHT 1-2 VIEWS Interpreted By: Berkley Anne, STUDY: XR KNEE RIGHT 1-2 VIEWS; ; 07/13/2023 10:35 am INDICATION: Signs/Symptoms:pain. ACCESSION NUMBER(S): [id number] ORDERING CLINICIAN: BERKLEY ANNE FINDINGS: AP lateral right knee x-ray shows a well-positioned right femoral tibial joint space. There is some mild flattening of the medial femoral condyle but the joint spaces relatively preserved. On the lateral view there is moderate to more significant patellofemoral arthrosis with joint space narrowing. No fracture dislocation. Overall moderate patellofemoral arthritis Signed by: Berkley Anne 07/13/2023 10:37 AM Dictation workstation: [id number] [facility] XR Knee - right 1 or 2 Views on 07-13-2023 Interpreted By: Berkley Anne, STUDY: XR KNEE RIGHT 1-2 VIEWS; ; 07/13/2023 10:35 am INDICATION: Signs/Symptoms:pain. ACCESSION NUMBER(S): [id number] ORDERING CLINICIAN: BERKLEY ANNE FINDINGS: AP lateral right knee x-ray shows a well-positioned right femoral tibial joint space. There is some mild flattening of the medial femoral condyle but the joint spaces relatively preserved. On the lateral view there is moderate to more significant patellofemoral arthrosis with joint space narrowing. No fracture dislocation. Overall moderate patellofemoral arthritis Signed by: Berkley Anne 07/13/2023 10:37 AM Dictation workstation: [id number] MMODAL Berkley Anne M D - 07/13/2023 Interpreted By: Berkley Anne, STUDY: XR KNEE RIGHT 1-2 VIEWS; ; 07/13/2023 10:35 am INDICATION: Signs/Symptoms:pain. ACCESSION NUMBER(S): [id number] ORDERING CLINICIAN: BERKLEY ANNE FINDINGS: AP lateral right knee x-ray shows a well-positioned right femoral tibial joint space. There is some mild flattening of the medial femoral condyle but the joint spaces relatively preserved. On the lateral view there is moderate to more significant patellofemoral arthrosis with joint space narrowing. No fracture dislocation. Overall moderate patellofemoral arthritis Signed by: Berkley Anen 07/13/2023 10:37 AM Dictation workstation: [id number] [facility] Work Phone: [facility] Work Phone: Radiology Study observation (narrative) [facility] Work Phone: XR SHOULDER RIGHT 2+ VIEWSon 06-29-2023 XR SHOULDER RIGHT 2+ VIEWS Interpreted By: Berkley Anne, STUDY: XR SHOULDER RIGHT 2+ VIEWS; ; 06/29/2023 4:14 pm INDICATION: Signs/Symptoms:pain. ACCESSION NUMBER(S): [id number] ORDERING CLINICIAN: BERKLEY ANNE FINDINGS: AP axillary right shoulder shows a well-positioned glenohumeral joint some mild osteoarthritic changes appreciated over the inferior half of the glenohumeral joint on the AP view. There is no fracture dislocation. On the axillary view the humeral head is centrally positioned over the glenoid Signed by: Berkley Anne 06/29/2023 4:47 PM Dictation workstation: [id number] [facility] Consent for Treatmenton 0 Consent for Treatment [id number] .00CD:127 Normal [facility] Physician Orderon 05-20-2023 Physician Order [id number]# 1.00CD:127 Normal [facility] XR Knee Complete 4+ Views Le fton 05-20-2023 XR Knee Complete 4+ Views Left Exam Date/Time: 05/20/2023 11:05 EDT Reason for Exam: M17.12 arthritis of left knee Report IMPRESSION: MODERATE DEGENERATIVE OSTEOARTHRITIS OF THE LEFT KNEE. SIGNIFICANT JOINT EFFUSION AND A FEW SMALL JOINT LICE. CLINICAL HISTORY: M17.12 arthritis of left knee COMPARISON: NONE. FINDINGS: 4 views of the left knee demonstrate no evidence of acute fracture or dislocation. There is moderate narrowing of patellofemoral joint space associated with degenerative hypertrophic spurs. There are degenerative hypertrophic spurs from tibial spines. There are a few small joint lice. There is significant joint effusion in the suprapatellar recess. Ordering Provider: ADRIAN FARIA FINAL REPORT Dictated: 05/20/2023 2:22 pm Joseph Quevedo M.D. Signed (Electronic Signature): 05/20/2023 2:22 pm Signed by: Joseph Quevedo M.D. Transcribed by: JAMES Technologist: FERNANDO Technical Comments Radiation Dose: Ka,r in mGy = NA DAP = NA Normal [facility] Established Visit (Orthopaed ic Surgery)on 03-19-2023 Established Visit (Orthopaedic Surgery) Diagnoses/Problems Assessed Loose body of right shoulder (718.11) (M24.011) Nontraumatic incomplete tear of right rotator cuff (726.13) (M75.111) Provider Impressions TREATMENT PLAN: Options at this point include, arthroscopy loose body removal, probable rotator cuff repair. Sling would be for six weeks. Rehab for another six to eight weeks. She is not interested in being in a sling in the summer. She does not want surgery right now. We offered cortisone injection. She declined. At this point, she is going to try to avoid surgery. I will see her back in three months with AP axillary view. We will evaluate the loose body, evaluate the shoulder. She does have some underlying arthritis so no matter what we do, the arthritis will continue to progress. Again, we offered injection. She declined. Arthroscopy with loose body removal, rotator cuff repair, she declined due to the length of the rehab program. We will see her back in three months for maintenance x-ray. If she changes her mind about a cortisone injection, she could certainly come in for that at any time. Chief Complaint rt shoulder MRI results History of Present IllnessPatient here for follow up of right shoulder. She had a floater, loose body. MRI done at [facility] confirms rotator cuff tear. 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 She has about a 7 to 8 mm loose piece floating in the shoulder. Active Problems Problems Loose body of right shoulder (718.11) (M24.011) Loose body of shoulder (718.11) (M24.019) Pain, joint, shoulder (719.41) (M25.519) Allergies Medication Codeine Derivatives Recorded By: Kathleen Leyva; 01/12/2023 2:02:19 PM Latex Exam Gloves MISC Recorded By: Kathleen Leyva; 01/12/2023 2:02:19 PM Current Meds Medication NameInstruction traMADol HCl - 50 MG Oral Tablet Physical Exam On examination, she can flex up to around 150, abduct to 40, external rotation to 40, reasonable push-pull. Neurovascularly intact. Moving elbow, hand and wrist. Motor intact C5-T1. Just overhead pain and some stiffness. Signatures Electronically signed by : Josefa Roger, ; Mar 23 2023 12:58PM EST ([place] Boner/Rec order) Electronically signed by : Berkley Anne MD; Mar 23 2023 1:50PM EST Normal [facility] MRI SHOULDER RIGHT WO CONTRA STon 02-24-2023 MRI SHOULDER RIGHT WO CONTRAST EXAMINATION: MRI OF THE RIGHT SHOULDER WITHOUT CONTRAST 02/24/2023 11:49 am TECHNIQUE: Multiplanar multisequence MRI of the right shoulder was performed without the administration of intravenous contrast. COMPARISON: None. HISTORY: ORDERING SYSTEM PROVIDED HISTORY: Loose body in shoulder joint, unspecified laterality TECHNOLOGIST PROVIDED HISTORY: What reading provider will be dictating this exam?->CRC FINDINGS: ROTATOR CUFF: 1.1 cm linear tear articular surface fibers of the distal supraspinatus, superimposed on background tendon thickening. Partial-thickness tearing interstitial fibers of the infraspinatus is observed, also with mild background tendinosis. Partial-thickness tearing distal subscapularis tendon. Mild to moderate muscular volume loss with mild fatty streaking. BICEPS TENDON: Intact vertical and horizontal portions of the long head of the biceps tendon. LABRUM: The glenoid labrum is intact to the extent that it is visualized. No paralabral cyst. GLENOHUMERAL JOINT: Advanced chondral loss from the glenoid aspect of the articulation. No secondary osseous changes. 7 mm oval loose body seen in the subcoracoid recess AC JOINT AND ACROMIOCLAVICULAR ARCH: Mild hypertrophic changes, no significant mass effect. Type 1 straight undersurface morphology to the acromion. BONE MARROW: No evidence of fracture. Normal marrow signal. OUTLET SPACES: Normal MRI appearance of the quadrilateral space. No significant narrowing of the supraspinatus outlet. IMPRESSION: 1. 7 mm oval cartilaginous loose body subcoracoid recess. Somewhat advanced chondral loss from the glenoid aspect of the glenohumeral articulation. 2. 1.1 cm linear tear articular surface fibers distal supraspinatus, with background tendinosis. 3. Partial-thickness tearing interstitial fibers of the infraspinatus Interpreted by: Mirtha Turner MD Signed by: Mirtha Turner MD 02/24/23 Final result Normal [facility] [place]on 01-12-2023 Initial Visit (Orthopaedic Surgery) Diagnoses/Problems Assessed Loose body of right shoulder (718.11) (M24.011) Orders Pain, joint, shoulder Xray Shoulder Complete Min 2 Views; Status:Complete; Done: 12Jan2023 02:48PM Laterality : Right Radiologist to Determine Optimal Study : Y What are the patient's signs and symptoms? : pain Provider Impressions We have recommended MRI to find out exactly the above questions of loose body, donor site and cuff integrity. We offered injections; she declined. She has had symptoms for six months despite rest, activity modification, exercises, and antiinflammatories, so now for surgical planning. MRI is mandatory to evaluate for potential loose body donor site and cuff integrity. We will look forward to seeing her back at that time. Chief Complaint rt shoulder pain, xrays today History of Present IllnessSix-month history of right shoulder pain. No specific traumatic event. She noticed about six months ago the shoulder became painful. Limited motion. It started locking up and catching. Some days she can flex and extend. Some days there is more pain. Active Problems Problems Pain, joint, shoulder (719.41) (M25.519) Allergies Codeine Derivatives Recorded By: Kathleen Leyva; 01/12/2023 2:02:19 PM Latex Exam Gloves MISC Recorded By: Kathleen Leyva; 01/12/2023 2:02:19 PM Current Meds Medication NameInstruction traMADol HCl - 50 MG Oral Tablet Vitals Vital Signs Recorded: 12Jan2023 02:01PMRecorded: 12Jan2023 02:00PM Height5 ft 4 in5 ft 4 in [id number] lb 220 lb BMI Bwvswtusly63.76 kg/m237.76 kg/m2 BSA Calculated2.042.04 Physical Exam Today on examination, both upper extremities were examined in the exact same fashion. All findings on the contralateral side were normal. The affected right shoulder was inspected and as found to have no obvious deformity. The skin was intact. There was tenderness to touch and palpation on the lateral edge of the shoulder over the rotator cuff insertion. Active forward flexion was up to 140 degrees and abduction 40 degrees. External rotation was 30 degrees and internal rotation was to the level of T10 and adduction of 45 degrees. At this time, the shoulder is neurovascularly intact and neurosensory intact. Reflexes were normal over the forearm as were pulses at the wrist. Motor intact C5 through T1. There is no neck pain or radiculopathy noted. Cervical flexion and extension were within normal limits. Inspection of the neck showed normal curvature and integrity of the skin. Strength and stability of the neck muscles and ligaments were within normal limits. There is no gross instability and no adhesive capsulitis. There is no apprehension/apprehen krys suppression. Strength was tested in four planes with weakness in supraspinatus testing and external rotation, but no strength deficit in internal rotation. Impingement sign checked in the supine and standing position for type I and II was positive. Results/Data Radiology: X-rays show a well-positioned glenohumeral joint, but a cortical irregularity seen on AP and axillary views concerning for a loose body in the affected right shoulder. The joint looks preserved and the subacromial space is preserved, but it is hard to tell without advanced imaging studies where the loose piece is, or where the origin or donor site is. Signatures Electronically signed by : Susie Landin, ; Jan 13 2023 2:52PM EST ([place] Boner/Rec order) Electronically signed by : Berkley Anne MD; Jan 13 2023 3:01PM EST [facility] 01-12-2023 XR Shoulder 2 Views Normal [facility] Work Phone: SHOULDER, CMPLT, MIN 2 VIEWS on 01-12-2023 SHOULDER, CMPLT, MIN 2 VIEWS Patient Name: RHONDA HULL STUDY: SHOULDER, CMPLT, MIN 2 VIEWS; Right; 01/12/2023 2:48 pm INDICATION: pain M25.519: Pain, joint, shoulder. ACCESSION NUMBER(S): [id number] ORDERING CLINICIAN: BERKLEY ANNE FINDINGS: AP axillary right shoulder show well-positioned glenohumeral joint on the AP view possible loose body or cortical calcification is seen in the inferior center of the joint. On the axillary view we can see faint calcification at the posterior glenoid junction of the joint. The humeral head remains centered in the glenoid fossa. Correlate with advanced imaging studies defined donor site and or loose body position and cuff integrity is recommended if clinically indicated. Electronically signed by: BERKLEY ANNE MD Normal [facility] CHEMISTRYOrdered By: SYSTEM SYSTEM on 11-11-2022 Albumin [Mass/Vol] 3.4 g/dL Normal 3.3 - 5.0 gm/dL [facility] Albumin/Globulin [Mass ratio] 0.9 {ratio} Low 1.1 - 2.2 [facility] ALP [Catalytic activity/Vol] 68 [iU]/d Normal 21 - 98 Int._Unit/L [facility] ALT No additional P-5'-P [Catalytic activity/Vol] 26 [iU]/d Normal 6 - 46 Int._Unit/L [facility] Anion gap [Moles/Vol] 9 mmol/L Normal 6 - 16 mEq/L [facility] AST [Catalytic activity/Vol] 27 [iU]/d Normal 5 - 43 Int._Unit/L [facility] Bilirubin [Mass/Vol] 0.5 mg/dL Normal 0.0 - 1 .1 mg/dL [facility] Calcium [Mass/Vol] 8.9 mg/dL Normal 8.9 - 11. 1 mg/dL [facility] Chloride [Moles/Vol] 106 mmol/L Normal 101 - 1 11 mmol/L [facility] Cholesterol [Mass/Vol] 233 mg/dL High 120 - 200 mg/dL [facility] Cholesterol in HDL [Mass/Vol] 62 mg/dL Invalid Interpretation Code [facility] Cholesterol in LDL [Mass/Vol] 143 mg/dL High <=129mg/dL [facility] Cholesterol in VLDL [Mass/Vol] 15 mg/dL Normal 7 - 40 mg/dL [facility] CO2 [Moles/Vol] 27 mmol/L Normal 21 - 31 mmol/L [facility] Creatinine [Mass/Vol] 1.2 mg/dL Normal 0.5 - 1.3 mg/dL [facility] GFR/1.73 sq M.predicted among blacks MDRD (S/P/Bld) [Vol rate/Area] 55 mL/min/1.73 m2 Low >=59mL/min/1 .73 m2 [facility] Chem S GFR/1.73 sq M.predicted among non-blacks MDRD (S/P/Bld) [Vol rate/Area] 46 mL/min/1.73 m2 Low >=59mL/min/1 .73 m2 [facility] S Globulin (S) [Mass/Vol] 3.8 g/dL Normal 1.4 - 4.0 gm/dL [facility] Glucose [Mass/Vol] 103 mg/dL Normal 55 - 199 mg/dL [facility] Potassium [Moles/Vol] 4.1 mmol/L Normal 3.5 - 5.3 mmol/L [facility] Protein [Mass/Vol] 7.2 g/dL Normal 6.0 - 7.8 gm/dL [facility] Sodium [Moles/Vol] 138 mmol/L Normal 135 - 145 mmol/L [facility] Triglyceride [Mass/Vol] 76 mg/dL Normal <=149mg/dL [facility] Urea nitrogen [Mass/Vol] 22 mg/dL High 5 - 21 mg/dL [facility] Urea nitrogen/Creatinine [Mass ratio] 18 mg/mg Normal 10 - 20 [facility] HEMATOLOGYOrdered By: SYSTEM SYSTEM on 11-11-2022 Basophils/100 WBC (Bld) 0.9 % Normal 0.0 - 2.0 % [facility] Basophils/Leukocytes Auto (Bld) [Pure # fraction] 0.1 E9/L Normal 0.0 - 0.2 E9/L [facility] Eosinophils/100 WBC (Bld) 4.5 % Normal 0.0 - 8.0 % [facility] Eosinophils/Leukocyte s Auto (Bld) [Pure # fraction] 0.3 E9/L Normal 0.0 - 0.5 E9/L [facility] Lymphocytes/100 WBC (Bld) 31.7 % Normal 14.0 - 50.0 % [facility] Lymphocytes/Leukocyte s Auto (Bld) [Pure # fraction] 2.0 E9/L Normal 1.0 - 4.0 E9/L [facility] Monocytes/100 WBC (Bld) 6.7 % Normal 4.0 - 14.0 % [facility] Monocytes/Leukocytes Auto (Bld) [Pure # fraction] 0.4 E9/L Normal 0.2 - 1.0 E9/L [facility] Neutrophils/100 WBC (Bld) 56.2 % Normal 36.0 - 75.0 % [facility] Neutrophils/Leukocyte s Auto (Bld) [Pure # fraction] 3.5 E9/L Normal 2.0 - 7.5 E9/L [facility] HEMATOLOGYOrdered By: Thanh Shah on 11-11-2022 Erythrocyte distribution width (RBC) [Ratio] 14.8 % High 10.9 - 14.2 % [facility] Hematocrit (Bld) [Volume fraction] 40.9 % Normal 34.0 - 46.0 % [facility] Hemoglobin (Bld) [Mass/Vol] 13.6 g/dL Normal 12.0 - 16.0 gm/dL [facility] MCH (RBC) [Entitic mass] 30.0 pg Normal 27.0 - 34.0 pg [facility] MCHC (RBC) [Mass/Vol] 33.3 g/dL Normal 31.4 - 36.0 gm/dL [facility] MCV (RBC) [Entitic vol] 90.2 fL Normal 80.0 - 100.0 fL [facility] Platelet mean volume (Bld) [Entitic vol] 8.5 fL Normal 6.4 - 10.8 fL [facility] Platelets (Bld) [#/Vol] 254.0 E9/L Normal 150.0 - 500.0 E9/L [facility] RBC (Bld) [#/Vol] 4.5 E12/L Normal 4.3 - 5.9 E12/L [facility] WBC corrected for nucl RBC Auto (Bld) [#/Vol] 6.3 E9/L Normal 4.0 - 11.0 E9/L [facility] Vital Signs Date Time Vital Sign Value Performing Clinician Facility 04-04-2024 13:51-0400 Blood Pressure Location Ramsesvalerie Corea [facility] 04-04-2024 13:51-0400 Body temperature 98.6 [degF] Ramses [facility] 04-04-2024 13:51-0400 Diastolic blood pressure 68 mm[Hg] Ramses Core[facility] 04-04-2024 13:51-0400 Heart rate 60 /min Ramses Corea [facility] 04-04-2024 13:51-0400 Respiratory rate 18 /min Ramses Corea [facility] 04-04-2024 13:51-0400 SaO2% (BldA) [Mass fraction] 97 % Ramses Corea [facility] 04-04-2024 13:51-0400 Systolic blood pressure 112 mm[Hg] Ramses Corea [facility] 01-12-2024 09:21-0400 Blood Pressure Location Hi Kirnus [facility] 01-12-2024 09:21-0400 Diastolic blood pressure 72 mm[Hg] [facility] 01-12-2024 09:21-0400 Heart rate 72 /min Hi [facility] 01-12-2024 09:21-0400 SaO2% (BldA) [Mass fraction] 97 % Hi [facility] 01-12-2024 09:21-0400 Systolic blood pressure 122 mm[Hg] Hi [facility] 10-29-2023 11:08-0500 Body height 162.6 cm Adrian Fraia MD Work Phone: [facility] 10-29-2023 11:08-0500 Body mass index (BMI) [Ratio] 37.08 kg/m2 Adrian Faria MD Work Phone: [facility] 10-29-2023 11:08-0500 Body temperature 97.5 [degF] Adrian Faria MD Work Phone: [facility] 10-29-2023 11:08-0500 Body weight 97.98 kg Adrian Faria MD Work Phone: [facility] 10-29-2023 11:08-0500 Diastolic blood pressure 72 mm[Hg] Adrian Faria MD Work Phone: [facility] 10-29-2023 11:08-0500 Heart rate 56 /min Adrian Faria MD Work Phone: [facility] 10-29-2023 11:08-0500 SaO2% (BldA) [Mass fraction] 97 % Adrian Faria MD Work Phone: [facility] 10-29-2023 11:08-0500 Systolic blood pressure 128 mm[Hg] Adrian Faria MD Work Phone: [facility] 10-15-2023 13:08-0500 Body mass index (BMI) [Ratio] 37.08 kg/m2 Adrian Faria MD Work Phone: [facility] 10-15-2023 13:08-0500 Body weight 97.98 kg Adrian Faria MD Work Phone: [facility] 10-15-2023 13:08-0500 Diastolic blood pressure 88 mm[Hg] Adrian Faria MD Work Phone: [facility] 10-15-2023 13:08-0500 Heart rate 47 /min Adrian Faria MD Work Phone: [facility] 10-15-2023 13:08-0500 SaO2% (BldA) [Mass fraction] 97 % Adrian Faria MD Work Phone: [facility] 10-15-2023 13:08-0500 Systolic blood pressure 110 mm[Hg] Adrian Faria MD Work Phone: [facility] 01-12-2023 14:01-0400 Body height 162.56 cm No PCP None [facility] [place] Work Phone: 01-12-2023 14:01-0400 Body mass index (BMI) [Ratio] 37.76 kg/m2 No PCP None [facility] [place] Work Phone: 01-12-2023 14:01-0400 Body surface area Derived from formula 2.04 m2 No PCP None [facility] [place] Work Phone: 01-12-2023 14:01-0400 Body weight 99.79 kg No PCP None [facility] [place] Work Phone: Encounters Encounter Date Encounter Type Care Provider Facility Start: 06-20-2024 End: 06-20-2024 ambulatory ADRIAN FARIA Not Available Start: 04-18-2024 End: 04-18-2024 ambulatory ANTWAN VAZQUEZ Not Available Start: 04-04-2024 End: 04-04-2024 ambulatory Ramses Corea Facility:[facility] Start: 04-04-2024 End: 04-04-2024 Patient encounter procedure Ramses Corea [facility] Start: 03-29-2024 End: 03-29-2024 ambulatory DEE CULLEN Not Available Start: 02-01-2024 End: 02-01-2024 ambulatory MD Hi Rey [place] Start: 02-01-2024 End: 02-01-2024 Patient encounter procedure Hi Rey [facility] Start: 01-12-2024 End: 01-12-2024 ambulatory MD Hi Rey Facility[place] Start: 01-12-2024 End: 01-12-2024 Patient encounter procedure Hi Talamantesjarocho [facility] Start: 12-23-2023 End: 12-23-2023 ambulatory Riccardo Moises Whitneyjohanna [facility] Start: 12-23-2023 End: 12-23-2023 Patient encounter procedure DEE CULLEN [facility] Start: 12-18-2023 End: 12-18-2023 ambulatory Referral Self Facility:[facility] Start: 12-18-2023 End: 12-18-2023 ambulatory II Adrian Faria Work Phone: [facility] Work Phone: Start: 12-18-2023 End: 12-18-2023 Patient encounter procedure II Adrian Faria Work Phone: [facility] Work Phone: Start: 11-19-2023 End: 11-19-2023 ambulatory DEE CULLEN [place] Start: 11-19-2023 End: 11-19-2023 Patient encounter procedure DEE CULLEN [facility] Start: 11-18-2023 End: 11-18-2023 ambulatory DEE CULLEN Not Available Start: 10-29-2023 Bamboo flowsheet Adrian gallegos MD Work Phone: [facility] Start: 10-29-2023 Bamboo flowsheet Adrian gallegos MD Work Phone: [facility] Start: 10-29-2023 End: 10-29-2023 Office outpatient visit 25 minutes Adrian Faria MD Work Phone: [facility] Comment on above: Acute non-recurrent sinusitis, unspecified location (Primary Dx); Cervical radiculitis Start: 10-29-2023 End: 10-29-2023 ambulatory ADRIAN FARIA Not Available Start: 10-15-2023 End: 10-15-2023 Office outpatient visit 25 minutes Adrian Faria MD Work Phone: [facility] Comment on above: Acute non-recurrent sinusitis, unspecified location (Primary Dx); Moderate persistent asthma with exacerbation ([facility] Start: 10-15-2023 End: 10-15-2023 ambulatory ADRIAN FARIA Not Available Start: 10-07-2023 End: 10-07-2023 ambulatory ADRIAN FARIA Not Available Start: 08-19-2023 End: 08-19-2023 ambulatory DEE CULLEN Not Available Start: 08-13-2023 End: 08-13-2023 Emergency department patient visit Jamal Gardner Facility[place] Start: 07-13-2023 End: 07-14-2023 ambulatory [facility] Start: 07-13-2023 End: 07-13-2023 Office outpatient new 30 minutes Berkley Anne MD Work Phone: [facility] Comment on above: Right knee pain, uns pecified chronicity Start: 06-29-2023 End: 06-30-2023 ambulatory [facility] Start: 06-29-2023 End: 06-30-2023 ambulatory [facility] Start: 05-20-2023 End: 05-20-2023 ambulatory ADRIAN FARIA [facility] Start: 05-20-2023 End: 05-20-2023 Patient encounter procedure ADRIAN FARIA [facility] Start: 03-19-2023 Patient encounter procedure No [facility]CP [facility] Work Phone: Start: 03-19-[address] Berkley Anne Facility:[id number] Start: 02-24-2023 End: 02-27-2023 ambulatory [facility] Start: 01-12-2023 Patient encounter procedure No PCP None [facility] Work Phone: Start: 01-12-[address] Berkley Anne Facility:[id number] Start: 12-09-2022 End: 12-09-2022 ambulatory II Adrian Faria Work Phone: [facility] Work Phone: Start: 12-09-2022 End: 12-09-2022 Patient encounter procedure II Adrian Faria Work Phone: [facility] Work Phone: Start: 11-11-2022 End: 11-11-2022 Patient encounter procedure ANTWAN VAZQUEZ [facility] Start: 11-07-2022 End: 11-07-2022 Patient encounter procedure ADRIAN Madyson FARIA [facility] Start: 11-06-2022 End: 11-27-2022 Pre-admission assessment ADRIAN FARIA [facility] Start: 10-01-2022 End: 10-01-2022 Patient encounter procedure DEE CULLEN [facility] Start: 08-09-2022 End: 08-09-2022 Patient encounter procedure ADRIAN FARIA [facility] Start: 04-12-[address] KIKE ESPARZA Fac ility:[id number] Start: 11-16-2017 End: 11-17-2017 Patient encounter procedure PROVIDER UNKNOWN Facility:[facility] Procedures Date Procedure Procedure Detail Performing Clinician Start: 12-18-2023 Screening mammograph y of bilateral breasts II Adrian Faria Work Phone: Start: 07-13-2023 XR KNEE RIGHT 1-2 VIEWS BERKLEY ANNE Start: 06-29-2023 XR SHOULDER RIGHT 2+ VIEWS BERKLEY ANNE Start: 12-09-2022 End: 12-09-2022 Screening mammography of bilateral breasts II Adrian Bienvenido Work Phone: Start: 01-20-2022 Colonoscopy Adrian miller MD Work Phone: Start: 07-21-2011 Colonoscopy ADRIAN MILLER section ADRIAN SILVA Mable Cholecystectomy ADRIAN FARIA Plastic surgery - sp eciality (qualifier value) ADRIAN BIENVENIDO Comment on above: left hand post injur y Tonsillectomy ADRIAN FARIA Plan of Treatment Date Care Activity Detail Author Start: 01-21-2032 Screening for malign ant neoplasm of colon [facility] Start: 03-13-2024 Influenza vaccination Influenza Vacc ine (#1) [facility] Comment on above: Postponed from 05/15 (Patient Refused) Start: 12-10-2023 Screening for malign ant neoplasm of breast Mammogram [facility] Start: 10-29-2023 End: 10-29-2023 Patient encounter procedure 10/29/2023 11:15 AM EST Office Visit [facility] [address] [facility] [address] [place] [id number] Adrian Faria MD [address] [facility] [address] [place] [address] Arrived [facility] Comment on above: Arrived Start: 08-01-2023 End: 08-01-2023 Patient encounter procedure 08/01/2023 12:30 PM EST Appointment [place] [address] [place] [facility] [address] [facility] Start: 06-22-2023 FUV, Provider: Berkley Anne, Status: Pen, Time: 11:00 AM FUV, Provider: Berkley Anne, Status: Pen, Time: 11:00 AM [facility] Work Phone: Start: 05-15-2023 Influenza vaccination Influenza Vacc ine (#1) [facility] Start: 04-16-2021 COVID-19 Vaccine (3 - Moderna series) COVID-19 Vaccine (3 - Moderna series) [facility] Start: 2010 Zoster Vaccines (1 o f 2) Zoster Vaccines (1 of 2) [facility] Start: 1990 Screening for malign ant neoplasm of cervix [facility] Start: 1982 DTaP/Tdap/Td Vaccine s (1 - Tdap) DTaP/Tdap/Td Vaccines (1 - Tdap) [facility] Start: 1981 Screening for malign ant neoplasm of cervix [facility] Start: 1978 Diabetes mellitus screening Diabetes Screening [facility] Start: 1978 Hepatitis C screening Hepatitis C Sc [facility] Start: 1961 MMR Vaccines (1 of 1 - Standard series) MMR Vaccines (1 of 1 - Standard series) [facility] Start: 1960 HIV screening HIV Screening [facility] Start: 1960 Lipid panel Lipid Panel [facility] Start: 1960 Screening for malign ant neoplasm of colon [facility] Start: 1960 Yearly Adult Physical Yearly Adult P hysical [facility] Immunizations Immunization Date Immunization Notes Care Provider Fa cility 02-19-2021 COVID-19 mRNA-1273 (Moderna) RYNE Faria Work Phone: [facility] 01-22-2021 COVID-19 mRNA-1273 (Moderna) II Adrian Faria Work Phone: [facility] 07-03-2020 influenza, injectabl e, quadrivalent, contains preservative Adrian Faria MD Work Phone: [facility] 07-03-2020 pneumococcal polysaccharide vaccine, 23 valent Adrian Faria MD Work Phone: [facility] 07-03-2020 influenza virus vacc ine, unspecified formulation Berkley Anne MD Work Phone: [facility] Work Phone: 10-06-2018 influenza, high dose seasonal, preservative-free Adrian Faria MD Work Phone: [facility] 07-19-2018 influenza virus vacc ine, unspecified formulation Ramses Corea [facility] 07-19-2018 seasonal influenza, intradermal, preservative free Berkley Anne MD Work Phone: [facility] Work Phone: Payers Date Payer Category Payer Self-pay [id number] 2023 Unknown [id number] 2023 Unknown 2023 Medicaid [employer] [place] [employer] [id number] 2023-Present [address] [place] [address] [id number] 1960 Unknown [id number] [id number]7 1960 Unknown [id number] 2.16.840.1.662420.3.579.2.593 1960 Unknown [id number] 2.16.840.1.415069.3.579.2.182 1960 Unknown [id number] 2.16.840.1.712351.3.579.2.1068 1960 Unknown [id number] 2.16.840.1.558853.3.579.2.1068 1960 Unknown [id number] 2.16.840.1.617464.3.579.2.1246 1960 Unknown [id number] 2.16.840.1.885927.3.579.2.1246 1960 Unknown [id number] 2.16.840.1.262071.3.579.2.1246 1960 Unknown [id number] 2.16.840.1.004218.3.579.2.1246 1960 Unknown [id number] 2.16.840.1.870952.3.579.2.727 1960 Unknown [id number] 2.16.840.1.098156.3.579.2.72 1960 Unknown [id number] 2.16.840.1.615413.3.579.2. 1960 Unknown [id number] 2.16.840.1.486891.3.579.2.727 1960 Unknown [id number] 2.16.840.1.955394.3.579.2.72 1960 Unknown [id number] 2.16.840.1.784389.3.579.2.72 1960 Unknown [id number] 2.16.840.1.921933.3.579.2.72 1960 Unknown [id number] 2.16.840.1.398750.3.579.2.125 1960 Unknown [id number] 2.16.840.1.314100.3.579.2.1258 1960 Unknown [id number] 2.16.840.1.154490.3.579.2.1258 1960 Unknown [id number] 2.16.840.1.511039.3.579.2.1258 1960 Unknown [id number] 2.16.840.1.180401.3.579.2.1259 1960 Unknown [id number] 2.16.840.1.174123.3.579.2.1259 1960 Unknown [id number] 2.16.840.1.451102.3.579.2.1259 1960 Unknown [id number] 2.16.840.1.019577.3.579.2.1259 1959 Unknown [id number] Unknown [id number] 2.16.840.1.500412.3.579.2.531 Social History Date Type Detail Facility Start: 11-16-2020 End: 04-04-2024 Tobacco smoking status Never smoked tobacco (finding) [facility] Tobacco smoking status Never [facility] Start: 06-12-2023 End: 07-13-2023 Sex Assigned At Female [facility] Start: 1960 Sex Assigned At Female F [facility] Start: 04-08-2023 End: 06-29-2023 Tobacco use and exposure Smokeless tobacco non-user [facility] Work Phone: Start: 06-12-2023 End: 07-13-2023 History of Social function [facility] Work Phone: Start: 1960 Sex Assigned At Not on file [facility] Work Phone: Start: 07-03-2023 End: 07-13-2023 Exposure to SARS-CoV-2 (event) Not sure [facility] Start: 10-15-2023 End: 10-29-2023 Alcohol intake Ex-drinker (finding) [facility] Within the last year , have you been afraid of your partner or ex-partner? No [facility] Work Phone: Are you now , , , , never or living with a partner? [facility] How often to you hav e a drink containing alcohol? Never [facility] Do you feel stress - tense, restless, nervous, or anxious, or unable to sleep at night because your mind is troubled all the time - these days [OSQ] Not at all [facility] (I/We) worried linnealaurie er (my/our) food would run out before (I/we) got money to buy more. Never true [facility] Start: 05-05-2023 Alcohol Comment Caffeine intak e : coffee [facility] Functional Status Date Assessment Result Facility 04-04-2024 [facility] 01-12-2024 Functional Status No [facility] Clinical Notes 07-17-2022 to 04-04-2024 Ardian Faria MD - 10/29/2023 11:15 AM Maggy Faria MD - 10/15/2023 1:00 PM Natanael Anne MD - 07/13/2023 10:30 AM EDTRadiology Note Date & Type Note Facility 04-04-2024 Hospital Discharge instructions Patient Education 04/04/2024 18:31:22 Hip Pain Hip Pain The hip is the joint between the upper legs and the lower pelvis. The bones, cartilage, tendons, and muscles of your hip joint support your body and allow you to move around. Hip pain can range from a minor ache to severe pain in one or both of your hips. The pain may be felt on the inside of the hip joint near the groin, or on the outside near the buttocks and upper thigh. You may also have swelling or stiffness in your hip area. Follow these instructions at home: Managing pain, stiffness, and swelling If directed, put ice on the painful area. To do this: ?Put ice in a plastic bag. ?Place a towel between your skin and the bag. ?Leave the ice on for 20 minutes, 2 3 times a day. If directed, apply heat to the affected area as often as told by your health care provider. Use the heat source that your health care provider recommends, such as a moist heat pack or a heating pad. ?Place a towel between your skin and the heat source. ?Leave the heat on for 20 30 minutes. ?Remove the heat if your skin turns bright red. This is especially important if you are unable to feel pain, heat, or cold. You may have a greater risk of getting burned. Activity Do exercises as told by your health care provider. Avoid activities that cause pain. General instructions Take jzfs-bje-qnxbedi and prescription medicines only as told by your health care provider. Keep a journal of your symptoms. Write down: ?How often you have hip pain. ?The location of your pain. ?What the pain feels like. ?What makes the pain worse. Sleep with a pillow between your legs on your most comfortable side. Keep all follow-up visits as told by your health care provider. This is important. Contact a health care provider if: You cannot put weight on your leg. Your pain or swelling continues or gets worse after one week. It gets harder to walk. You have a fever. Get help right away if: You fall. You have a sudden increase in pain and swelling in your hip. Your hip is red or swollen or very tender to touch. Summary Hip pain can range from a minor ache to severe pain in one or both of your hips. The pain may be felt on the inside of the hip joint near the groin, or on the outside near the buttocks and upper thigh. Avoid activities that cause pain. Write down how often you have hip pain, the location of the pain, what makes it worse, and what it feels like. This information is not intended to replace advice given to you by your health care provider. Make sure you discuss any questions you have with your health care provider. Document Revised: 01/16/2020 Document Reviewed: 01/16/2020 [employer] Patient Education 2022 [employer]. 04/04/2024 18:31:19 BMI for Adults BMI for Adults What is BMI? Body mass index (BMI) is a number that is calculated from a person's weight and height. BMI can help estimate how much of a person's weight is composed of fat. BMI does not measure body fat directly. Rather, it is an alternative to procedures that directly measure body fat, which can be difficult and expensive. BMI can help identify people who may be at higher risk for certain medical problems. What are BMI measurements used for? BMI is used as a screening tool to identify possible weight problems. It helps determine whether a person is obese, overweight, a healthy weight, or underweight. BMI is useful for: Identifying a weight problem that may be related to a medical condition or may increase the risk for medical problems. Promoting changes, such as changes in diet and exercise, to help reach a healthy weight. BMI screening can be repeated to see if these changes are working. How is BMI calculated? BMI involves measuring your weight in relation to your height. Both height and weight are measured, and the BMI is calculated from those numbers. This can be done either in [place] or metric measurements. Note that charts and online BMI calculators are available to help you find your BMI quickly and easily without having to do these calculations yourself. To calculate your BMI in [place] measurements: 1.Measure your weight in pounds (lb). 2.Multiply the number of pounds by 703. For example, for a person who weighs 180 lb, multiply that number by 703, which equals 126,540. 3.Measure your height in inches. Then multiply that number by itself to get a measurement called inches squared. For example, for a person who is 70 inches tall, the inches squared measurement is 70 inches x 70 inches, which equals 4,900 inches squared. 4.Divide the total from step 2 (number of lb x 703) by the total from step 3 (inches squared): 126,540 4,900 = 25.8. This is your BMI. To calculate your BMI in metric measurements: 1.Measure your weight in kilograms (kg). 2.Measure your height in meters (m). Then multiply that number by itself to get a measurement called meters squared. For example, for a person who is 1.75 m tall, the meters squared measurement is 1.75 m x 1.75 m, which is equal to 3.1 meters squared. 3.Divide the number of kilograms (your weight) by the meters squared number. In this example: 70 3.1 = 22.6. This is your BMI. What do the results mean? BMI charts are used to identify whether you are underweight, normal weight, overweight, or obese. The following guidelines will be used: Underweight: BMI less than 18.5. Normal weight: BMI between 18.5 and 24.9. Overweight: BMI between 25 and 29.9. Obese: BMI of 30 or above. Keep these notes in mind: Weight includes both fat and muscle, so someone with a muscular build, such as an athlete, may have a BMI that is higher than 24.9. In cases like these, BMI is not an accurate measure of body fat. To determine if excess body fat is the cause of a BMI of 25 or higher, further assessments may need to be done by a health care provider. BMI is usually interpreted in the same way for men and women. Where to find more information For more information about BMI, including tools to quickly calculate your BMI, go to these websites: Centers for Disease Control and Prevention: www.cdc.gov [place] [employer]: www.heart.org National Heart, Lung, and Blood [place]: www.nhlbi.nih.gov Summary Body mass index (BMI) is a number that is calculated from a person's weight and height. BMI may help estimate how much of a person's weight is composed of fat. BMI can help identify those who may be at higher risk for certain medical problems. BMI can be measured using [place] measurements or metric measurements. BMI charts are used to identify whether you are underweight, normal weight, overweight, or obese. This information is not intended to replace advice given to you by your health care provider. Make sure you discuss any questions you have with your health care provider. Document Revised: 05/23/2020 Document Reviewed: 03/30/2020 [employer] Patient Education 2022 [employer]. 04/04/2024 18:31:17 Shoulder Pain, Vatq-lp-Lgkm Shoulder Pain Many things can cause shoulder pain, including: An injury. Moving the shoulder in the same way again and again (overuse). Joint pain (arthritis). Pain can come from: Swelling and irritation (inflammation) of any part of the shoulder. An injury to the shoulder joint. An injury to: ?Tissues that connect muscle to bone (tendons). ?Tissues that connect bones to each other (ligaments). ?Bones. Follow these instructions at home: Watch for changes in your symptoms. Let your doctor know about them. Follow these instructions to help with your pain. If you have a sling: Wear the sling as told by your doctor. Remove it only as told by your doctor. Loosen the sling if your fingers: ?Tingle. ?Become numb. ?Turn cold and blue. Keep the sling clean. If the sling is not waterproof: ?Do not let it get wet. ?Take the sling off when you shower or bathe. Managing pain, stiffness, and swelling If told, put ice on the painful area: ? Put ice in a plastic bag. ?Place a towel between your skin and the bag. ?Leave the ice on for 20 minutes, 2 3 times a day. Stop putting ice on if it does not help with the pain. Squeeze a soft ball or a foam pad as much as possible. This prevents swelling in the shoulder. It also helps to strengthen the arm. General instructions Take frci-pqb-rysmfvl and prescription medicines only as told by your doctor. Keep all follow-up visits as told by your doctor. This is important. Contact a doctor if: Your pain gets worse. Medicine does not help your pain. You have new pain in your arm, hand, or fingers. Get help right away if: Your arm, hand, or fingers: ?Tingle. ?Are numb. ?Are swollen. ?Are painful. ?Turn white or blue. Summary Shoulder pain can be caused by many things. These include injury, moving the shoulder in the same away again and again, and joint pain. Watch for changes in your symptoms. Let your doctor know about them. This condition may be treated with a sling, ice, and pain medicine. Contact your doctor if the pain gets worse or you have new pain. Get help right away if your arm, hand, or fingers tingle or get numb, swollen, or painful. Keep all follow-up visits as told by your doctor. This is important. This information is not intended to replace advice given to you by your health care provider. Make sure you discuss any questions you have with your health care provider. Document Revised: 05/16/2022 Document Reviewed: 05/16/2022 [employer] Patient Education 2022 [employer]. 04/04/2024 13:55:58 BMI for Adults BMI for Adults What is BMI? Body mass index (BMI) is a number that is calculated from a person's weight and height. BMI can help estimate how much of a person's weight is composed of fat. BMI does not measure body fat directly. Rather, it is an alternative to procedures that directly measure body fat, which can be difficult and expensive. BMI can help identify people who may be at higher risk for certain medical problems. What are BMI measurements used for? BMI is used as a screening tool to identify possible weight problems. It helps determine whether a person is obese, overweight, a healthy weight, or underweight. BMI is useful for: Identifying a weight problem that may be related to a medical condition or may increase the risk for medical problems. Promoting changes, such as changes in diet and exercise, to help reach a healthy weight. BMI screening can be repeated to see if these changes are working. How is BMI calculated? BMI involves measuring your weight in relation to your height. Both height and weight are measured, and the BMI is calculated from those numbers. This can be done either in [place] or metric measurements. Note that charts and online BMI calculators are available to help you find your BMI quickly and easily without having to do these calculations yourself. To calculate your BMI in [place] measurements: 1.Measure your weight in pounds (lb). 2.Multiply the number of pounds by 703. For example, for a person who weighs 180 lb, multiply that number by 703, which equals 126,540. 3.Measure your height in inches. Then multiply that number by itself to get a measurement called inches squared. For example, for a person who is 70 inches tall, the inches squared measurement is 70 inches x 70 inches, which equals 4,900 inches squared. 4.Divide the total from step 2 (number of lb x 703) by the total from step 3 (inches squared): 126,540 4,900 = 25.8. This is your BMI. To calculate your BMI in metric measurements: 1.Measure your weight in kilograms (kg). 2.Measure your height in meters (m). Then multiply that number by itself to get a measurement called meters squared. For example, for a person who is 1.75 m tall, the meters squared measurement is 1.75 m x 1.75 m, which is equal to 3.1 meters squared. 3.Divide the number of kilograms (your weight) by the meters squared number. In this example: 70 3.1 = 22.6. This is your BMI. What do the results mean? BMI charts are used to identify whether you are underweight, normal weight, overweight, or obese. The following guidelines will be used: Underweight: BMI less than 18.5. Normal weight: BMI between 18.5 and 24.9. Overweight: BMI between 25 and 29.9. Obese: BMI of 30 or above. Keep these notes in mind: Weight includes both fat and muscle, so someone with a muscular build, such as an athlete, may have a BMI that is higher than 24.9. In cases like these, BMI is not an accurate measure of body fat. To determine if excess body fat is the cause of a BMI of 25 or higher, further assessments may need to be done by a health care provider. BMI is usually interpreted in the same way for men and women. Where to find more information For more information about BMI, including tools to quickly calculate your BMI, go to these websites: Centers for Disease Control and Prevention: www.cdc.gov [place] [employer]: www.heart.org National Heart, Lung, and Blood [place]: www.nhlbi.nih.gov Summary Body mass index (BMI) is a number that is calculated from a person's weight and height. BMI may help estimate how much of a person's weight is composed of fat. BMI can help identify those who may be at higher risk for certain medical problems. BMI can be measured using [place] measurements or metric measurements. BMI charts are used to identify whether you are underweight, normal weight, overweight, or obese. This information is not intended to replace advice given to you by your health care provider. Make sure you discuss any questions you have with your health care provider. Document Revised: 05/23/2020 Document Reviewed: 03/30/2020 [employer] Patient Education 2022 [employer]. Follow Up Care 04/04/2024 12:41:23 With:BIENVENIDO COUCH, ADRIAN Coughlin, [facility] Address: [address] [place] [address]- When: Unknown [facility] 04-04-2024 Note Patient Education BMI for Adults What is BMI? Body mass index (BMI) is a number that is calculated from a person's weight and height. BMI can help estimate how much of a person's weight is composed of fat. BMI does not measure body fat directly. Rather, it is an alternative to procedures that directly measure body fat, which can be difficult and expensive. BMI can help identify people who may be at higher risk for certain medical problems. What are BMI measurements used for? BMI is used as a screening tool to identify possible weight problems. It helps determine whether a person is obese, overweight, a healthy weight, or underweight. BMI is useful for: ? Identifying a weight problem that may be related to a medical condition or may increase the risk for medical problems. ? Promoting changes, such as changes in diet and exercise, to help reach a healthy weight. BMI screening can be repeated to see if these changes are working. How is BMI calculated? BMI involves measuring your weight in relation to your height. Both height and weight are measured, and the BMI is calculated from those numbers. This can be done either in [place] or metric measurements. Note that charts and online BMI calculators are available to help you find your BMI quickly and easily without having to do these calculations yourself. To calculate your BMI in [place] measurements: 1. Measure your weight in pounds (lb). 2. Multiply the number of pounds by 703. ? For example, for a person who weighs 180 lb, multiply that number by 703, which equals 126,540. 3. Measure your height in inches. Then multiply that number by itself to get a measurement called inches squared. ? For example, for a person who is 70 inches tall, the inches squared measurement is 70 inches x 70 inches, which equals 4,900 inches squared. 4. Divide the total from step 2 (number of lb x 703) by the total from step 3 (inches squared): 126,540 ? 4,900 = 25.8. This is your BMI. To calculate your BMI in metric measurements: 1. Measure your weight in kilograms (kg). 2. Measure your height in meters (m). Then multiply that number by itself to get a measurement called meters squared. ? For example, for a person who is 1.75 m tall, the meters squared measurement is 1.75 m x 1.75 m, which is equal to 3.1 meters squared. 3. Divide the number of kilograms (your weight) by the meters squared number. In this example: 70 ? 3.1 = 22.6. This is your BMI. What do the results mean? BMI charts are used to identify whether you are underweight, normal weight, overweight, or obese. The following guidelines will be used: ? Underweight: BMI less than 18.5. ? Normal weight: BMI between 18.5 and 24.9. ? Overweight: BMI between 25 and 29.9. ? Obese: BMI of 30 or above. Keep these notes in mind: ? Weight includes both fat and muscle, so someone with a muscular build, such as an athlete, may have a BMI that is higher than 24.9. In cases like these, BMI is not an accurate measure of body fat. ? To determine if excess body fat is the cause of a BMI of 25 or higher, further assessments may need to be done by a health care provider. ? BMI is usually interpreted in the same way for men and women. Where to find more information For more information about BMI, including tools to quickly calculate your BMI, go to these websites: ? Centers for Disease Control and Prevention: www.cdc.gov ? [place] [employer]: www.heart.org ? National Heart, Lung, and Blood [place]: www.nhlbi.nih.gov Summary ? Body mass index (BMI) is a number that is calculated from a person's weight and height. ? BMI may help estimate how much of a person's weight is composed of fat. BMI can help identify those who may be at higher risk for certain medical problems. ? BMI can be measured using [place] measurements or metric measurements. ? BMI charts are used to identify whether you are underweight, normal weight, overweight, or obese. This information is not intended to replace advice given to you by your health care provider. Make sure you discuss any questions you have with your health care provider. Document Revised: 05/23/2020 Document Reviewed: 03/30/2020 [employer] Patient Education ? 2022 [employer]. Nutrition BMI for Adults What is BMI? Body mass index (BMI) is a number that is calculated from a person's weight and height. BMI can help estimate how much of a person's weight is composed of fat. BMI does not measure body fat directly. Rather, it is an alternative to procedures that directly measure body fat, which can be difficult and expensive. BMI can help identify people who may be at higher risk for certain medical problems. What are BMI measurements used for? BMI is used as a screening tool to identify possible weight problems. It helps determine whether a person is obese, overweight, a healthy weight, or underweight. BMI is useful for: ? Identifying a weight (more content not included)... [facility] 12-23-2023 Note Echocardiology Procedure Exam Date/Time Accession # Ordering Dr. Mejía Transthoracic 12/23/2023 11:51 EDT [id number] DEE CULLEN PASTRY CHEF-C Complete CPT code 30087 01135 Reason for Exam (Echo Transthoracic Complete) Precordial pain R07.2 Report [facility] [address] [place] [address] Adult Echocardiogram Report Name: RHONDA HULL Study Date: 12/23/2023 11:17 AM BP: 146/71 mmHg Patient Location: [facility] HR: 50 : 1960 Gender: Female Height: 64 in Age: 63 yrs Ethnicity: [facility] Weight: 217 lb Reason For Study: Precordial pain R07.2 BSA: 2.0 m2 History: No cardiac history per patient,Morbid obesity Ordering Physician: ALYSE^DEE^PASTRY CHEF-C Referring Physician: DEE CULLEN Performed By: Milagros Lund, YAZMIN, RVT Interpretation Summary Left ventricular systolic function is normal. Ejection Fraction = 55-60%. There is inferior wall severe hypokinesis Grade I diastolic dysfunction, (abnormal relaxation pattern). There is Trace mitral regurgitation. Procedure A complete two-dimensional transthoracic echocardiogram was performed (2D, M-mode, spectral and color flow Doppler). Left Ventricle The left ventricle is normal in size. There is normal left ventricular wall thickness. Left ventricular systolic function is normal. Ejection Fraction = 55-60%. There is inferior wall severe hypokinesis. Grade I diastolic dysfunction, (abnormal relaxation pattern). Left Atrium The left atrial size is normal. There is no atrial septal defect. Right Atrium Echocardiology Report Right atrial size is normal. Right Ventricle The right ventricular systolic function is normal. The right ventricle is normal size. Aortic Valve Aortic valve opening is normal. Aortic valve not well visualized. No aortic regurgitation. There is no aortic stenosis. Mitral Valve Mitral valve structure is normal. There is Trace mitral regurgitation. No mitral valve stenosis. Tricuspid Valve Anatomically normal tricuspid valve. No evidence of tricuspid regurgitation. No evidence of tricuspid stenosis. Pulmonic Valve Pulmonic valve not well visualized. No evidence of stenosis. There is no pulmonic valve regurgitation. Arteries The aortic root is normal in size. Normal ascending aorta. Venous The inferior vena cava is normal in size, and collapses normally with respiration. MMode/2D Measurements & Calculations RVDd: 3.2 cm LVIDd: 4.6 cm FS: 30.1 % Ao root diam: 3.2 cm IVSd: 0.92 cm LVIDs: 3.2 cm EDV(Teich): 95.9 ml Ao root area: 8.1 cm2 LVPWd: 0.98 cm ESV(Teich): 40.7 ml LA dimension: 3.8 cm EF(Teich): 57.5 % asc Aorta Diam: 3.0 cm LVOT diam: 2.3 cm LVLd ap4: 8.5 cm EDV(MOD-sp2): 60.3 ml LVOT area: 4.2 cm2 EDV(MOD-sp4): 87.5 ml ESV(MOD-sp2): 29.4 ml LVLs ap4: 6.7 cm EF(MOD-sp2): 51.2 % ESV(MOD-sp4): 36.6 ml EF(MOD-sp4): 58.2 % SV(MOD-sp4): 50.9 ml TAPSE: 1.8 cm IVC Diam: 1.6 cm RVIDd/LVIDd: 0.71 EF (MOD-bp): 58.7 % LA Vol Index: 19.6 ml/m2 Doppler Measurements & Calculations MV E max jose l: 81.4 cm/sec MV dec time: 0.28 sec Ao V2 max: 152.0 cm/sec LV V1 max P.1 mmHg MV A max jose l: 90.0 cm/sec Ao max P.2 mmHg LV V1 mean P.0 mmHg MV E/A: 0.90 Ao V2 mean: 95.6 cm/sec LV V1 max: 142.0 cm/sec Lat Peak E' Jose L: 8.7 cm/sec Ao mean P.0 mmHg LV V1 mean: 85.9 cm/sec E/E' Lat: 9.4 Ao V2 VTI: 39.4 cm LV V1 VTI: 31.3 cm Echocardiology Report Med Peak E' Jose L: 6.0 cm/sec E/E' Med: 13.6 PHILLY(I,D): 3.3 cm2 PHILLY(V,D): 3.9 cm2 SV(LVOT): 130.9 ml TR max jose l: 202.7 cm/sec RAP systole: 3.0 mmHg AV VR: 0.93 TR max P.4 mmHg PHILLY(VTI)/BSA_phl: 1.6 RVSP(TR): 19.4 mmHg FINAL REPORT Dictated: 12/23/2023 11:17 am Hi Rey MD Signed (Electronic Signature): 12/23/2023 12:42 pm Signed by: Hi Rey MD Transcribed by: GRADY Technologist: KAELA [facility] 10-29-2023 History of Present illness Narrative Subjective Patient ID: Rhonda Walker is a 62 y.o. female who presents for Follow-up (Sinus and asthma exac). Subjective Rhonda Walker is a 62 y.o. female who presents for evaluation of sinus pain. Symptoms include: clear rhinorrhea, congestion, post nasal drip, and sinus pressure. Onset of symptoms was 5 weeks ago. Symptoms have been gradually improving since that time. Past history is significant for asthma. Patient is a non- smoker. Current Outpatient Medications on File Prior to Visit Medication Sig Dispense Refill albuterol (2.5 MG/3ML) 0.083% nebulizer solution inhale contents of 1 vial ( 3 milliliters ) in nebulizer by mouth and INTO THE LUNGS every 4 to 6 hours if needed for 30 albuterol HFA 90 mcg/act inhaler Inhale 2 puffs every 4 (four) hours if needed for wheezing or shortness of breath. 18 g 11 Ypeextnczja-Sdmphyggu-Cfewlk (Trelegy Ellipta) 100-62.5-25 MCG/ACT aerosol powder Inhale 1 puff in the morning. traMADol (Ultram) 50 MG tablet Take 1 tablet (50 mg) by mouth every 6 (six) hours. 60 tablet 1 [] levoFLOXacin (Levaquin) 500 MG tablet Take 1 tablet (500 mg) by mouth in the morning for 10 days. 10 tablet 0 No current facility-administered medications on file prior to visit. Allergies Allergen Reactions Codeine Other Reaction(s): Unknown Latex Unknown Social History Tobacco Use Smoking status: Never Smokeless tobacco: Never Substance Use Topics Alcohol use: Not Currently Comment: Caffeine intake : coffee Drug use: Never Family History Problem Relation Name Age of Onset Cancer Mother Diabetes Father Heart disease Father Hypertension Father Past Medical History: Diagnosis Date Asthma (CMS/HCC) Hand injury left, 50 years ago Hx of colonoscopy 2010 Injury Pressing machine Toe fracture, left 2018 5th toe Past Surgical History: Procedure Laterality Date SECTION, LOW TRANSVERSE CHOLECYSTECTOMY COLONOSCOPY 2010 COLONOSCOPY 01/20/2022 HAND SURGERY 1975 plastic surgery from press machine 1974 TONSILLECTOMY VAGINAL DELIVERY x3 Visit Vitals BP 128/72 Pulse 56 Temp 97.5 F Ht 5' 4 Wt 216 lb SpO2 97% BMI 37.08 kg/m Smoking Status Never BSA 2.1 m Review of Systems HENT: Positive for congestion, sinus pressure and sinus pain. Respiratory: Positive for cough. Objective Physical Exam Constitutional: General: She is not in acute distress. Appearance: Normal appearance. She is well-developed. HENT: Head: Normocephalic and atraumatic. Right Ear: Tympanic membrane and ear canal normal. Left Ear: Tympanic membrane and ear canal normal. Nose: Congestion present. Mouth/Throat: Mouth: Mucous membranes are moist. Pharynx: Posterior oropharyngeal erythema present. Eyes: General: No scleral icterus. Conjunctiva/sclera: Conjunctivae normal. Neck: Thyroid: No thyromegaly. Cardiovascular: Rate and Rhythm: Normal rate and regular rhythm. Heart sounds: Normal heart sounds. No murmur heard. Pulmonary: Effort: Pulmonary effort is normal. No respiratory distress. Breath sounds: Normal breath sounds. No wheezing, rhonchi or rales. Lymphadenopathy: Cervical: No cervical adenopathy. Skin: General: Skin is warm and dry. Neurological: General: No focal deficit present. Mental Status: She is alert and oriented to person, place, and time. Psychiatric: Mood and Affect: Mood normal. Behavior: Behavior normal. Assessment/Plan Diagnoses and all orders for this visit: Acute non-recurrent sinusitis, unspecified location - cefdinir (Omnicef) 300 MG capsule; Take 1 capsule (300 mg) by mouth in the morning and 1 capsule (300 mg) before bedtime. Do all this for 7 days. - methylPREDNISolone (Medrol Dospak) 4 MG tablets; Follow schedule on package instructions Cervical radiculitis - cefdinir (Omnicef) 300 MG capsule; Take 1 capsule (300 mg) by mouth in the morning and 1 capsule (300 mg) before bedtime. Do all this for 7 days. Follow up in about 2 weeks (around 11/12/2023), or if symptoms worsen or fail to improve. documented in this encounter [facility] 10-15-2023 History of Present illness Narrative Subjective Patient ID: Rhonda Walker is a 62 y.o. female who presents for Cough (Pt was given inhaler and abx. For 10 days). Cough is better but still has Cough This is a recurrent problem. The current episode started 1 to 4 weeks ago. The problem has been gradually improving. Current Outpatient Medications on File Prior to Visit Medication Sig Dispense Refill albuterol (2.5 MG/3ML) 0.083% nebulizer solution inhale contents of 1 vial ( 3 milliliters ) in nebulizer by mouth and INTO THE LUNGS every 4 to 6 hours if needed for 30 albuterol HFA 90 mcg/act inhaler Inhale 2 puffs every 4 (four) hours if needed for wheezing or shortness of breath. 18 g 11 amoxicillin-clavulanate (Augmentin) 875-125 MG tablet Take 1 tablet (875 mg) by mouth in the morning and 1 tablet (875 mg) before bedtime. Do all this for 10 days. 20 tablet 0 Bnkevnlqvjn-Spjdbzouh-Stlkgg (Trelegy Ellipta) 100-62.5-25 MCG/ACT aerosol powder Inhale 1 puff in the morning. traMADol (Ultram) 50 MG tablet Take 1 tablet (50 mg) by mouth every 6 (six) hours. 60 tablet 1 No current facility-administered medications on file prior to visit. Allergies Allergen Reactions Codeine Other Reaction(s): Unknown Latex Unknown Social History Tobacco Use Smoking status: Never Smokeless tobacco: Never Substance Use Topics Alcohol use: Not Currently Comment: Caffeine intake : coffee Drug use: Never Family History Problem Relation Name Age of Onset Cancer Mother Diabetes Father Heart disease Father Hypertension Father Past Medical History: Diagnosis Date Asthma (CMS/HCC) Hand injury left, 50 years ago Hx of colonoscopy 2011 Injury Pressing machine Toe fracture, left 2018 5th toe Past Surgical History: Procedure Laterality Date SECTION, LOW TRANSVERSE CHOLECYSTECTOMY COLONOSCOPY 2010 COLONOSCOPY 01/20/2022 HAND SURGERY 1975 plastic surgery from press machine 1974 TONSILLECTOMY VAGINAL DELIVERY x3 Visit Vitals BP 110/88 Pulse (!) 47 Wt 216 lb SpO2 97% BMI 37.08 kg/m Smoking Status Never BSA 2.1 m Review of Systems HENT: Positive for congestion, sinus pressure and sinus pain. Respiratory: Positive for cough. Objective Physical Exam Constitutional: General: She is not in acute distress. Appearance: Normal appearance. She is well-developed. HENT: Head: Normocephalic and atraumatic. Right Ear: Tympanic membrane and ear canal normal. Left Ear: Tympanic membrane and ear canal normal. Nose: Congestion present. Mouth/Throat: Mouth: Mucous membranes are moist. Pharynx: Posterior oropharyngeal erythema present. Eyes: General: No scleral icterus. Conjunctiva/sclera: Conjunctivae normal. Neck: Thyroid: No thyromegaly. Cardiovascular: Rate and Rhythm: Normal rate and regular rhythm. Heart sounds: Normal heart sounds. No murmur heard. Pulmonary: Effort: Pulmonary effort is normal. No respiratory distress. Breath sounds: Normal breath sounds. No wheezing, rhonchi or rales. Lymphadenopathy: Cervical: No cervical adenopathy. Skin: General: Skin is warm and dry. Neurological: General: No focal deficit present. Mental Status: She is alert and oriented to person, place, and time. Psychiatric: Mood and Affect: Mood normal. Behavior: Behavior normal. Assessment/Plan Diagnoses and all orders for this visit: Acute non-recurrent sinusitis, unspecified location - levoFLOXacin (Levaquin) 500 MG tablet; Take 1 tablet (500 mg) by mouth in the morning for 10 days. Moderate persistent asthma with exacerbation ([facility]) - Steroid shot was given Follow up in about 2 weeks (around 10/29/2023) for Recheck. documented in this encounter [facility] 07-13-2023 History of Present illness Narrative History of present: Right knee pain no real traumatic onset or fracture or history of pain just over the last couple months he started getting more and more pain especially with stair climbing getting up and down Past medical history: The patient's past medical history, family history, social history and review of systems were documented on the patient's medical intake form. The medical intake form was reviewed and scanned into the electronic medical record for future use. History is otherwise negative except as stated in the history of present illness. Physical exam: General: Alert and oriented to person place and time. No acute distress and breathing comfortably, pleasant and cooperative with examination. Head and neck exam: Head is normocephalic atraumatic. Neck: Supple no visible swelling or deformity. Cardiovascular: Good perfusion to affected extremities without signs or symptoms of chest pain. Lungs no audible wheezing or labored breathing on examination. Abdominal exam: Nondistended nontender Extremities: The affected right knee was examined and inspected and was tender to touch along the medial and lateral aspect with catching, locking or mechanical symptoms. The skin was intact without breakdown or open wound. Old incisions of present were healed. There was a mild Gisela exam seen with some evidence of instability and weakness in the collateral ligaments with varus valgus stressing and laxity in the anterior or posterior planes. There was a negative Kiana's test pivot shift test and posterior drawer sign with no foot drop, numbness or tingling. Sensation, reflexes and pulses in the foot and ankle are preserved. There was an effusion. Range of motion showed good straight leg raise with flexion to 150 degrees and extension to 0 degrees. The patient had the ability to bear weight but with discomfort. The patient's gait was antalgic secondary to discomfort Diagnostic studies: X-rays show mostly patellofemoral arthrosis where she is nearly [id number] joint space is still relatively preserved in the medial lateral and anterior view Impression: Advanced patellofemoral arthritis Plan: Simple knee brace or sleeve Anti-inflammatories if tolerable We did offer a cortisone shot she declined If her pain increases she will call Griselda to come in for a simple cortisone injection fully she can avoid arthroplasty for years to come documented in this encounter [facility] Work Phone: 03-23-2023 History of Present illness Narrative Patient here for follow up of right shoulder. She had a floater, loose body. MRI done at [facility] confirms rotator cuff tear. 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 She has about a 7 to 8 mm loose piece floating in the shoulder. -[facility] Work Phone: 07-17-2022 History of Present illness Narrative Six-month history of right shoulder pain. No specific traumatic event. She noticed about six months ago the shoulder became painful. Limited motion. It started locking up and catching. Some days she can flex and extend. Some days there is more pain. [facility] Work Phone: Evaluation + Plan note No data available for this section [facility] Evaluation + Plan note Future Appointments Appointment Date:11/17/2022 01:30:00 PM Scheduled Provider: Location:[facility] Physical Tx Appointment Type:PT Eval (FT) [facility] Evaluation + Plan note Future Appointments Appointment Date:07/13/2024 01:00:00 PM Scheduled Provider:Hi Rey MD Location[facility] Appointment Type:Cardiology Follow Up (FT) Future Scheduled TestsNM Myocardial Spect Rest/Stress 1 Day 01/12/24 [facility] Evaluation + Plan note Future Appointments Appointment Date:07/13/2024 01:00:00 PM Scheduled Provider:Hi Rey MD Location:[facility] Appointment Type:Cardiology Follow Up (FT) [facility] Evaluation note No assessment inform ation available [facility] Work Phone: Evaluation note Diagnosis Right knee pain, unspecified chronicity Right knee pain, unspecified chronicity documented in this encounter [facility] Work Phone: Evaluation note* Diagnosis Acute non-recurrent sinusitis, unspecified location- Primary Moderate persistent asthma with exacerbation (CMS/HCC) Unspecified asthma, with exacerbation documented in this encounter [facility] HealthcareEvaluation note* Diagnosis Acute non-recurrent sinusitis, unspecified location- Primary Cervical radiculitis Brachial neuritis or radiculitis nos documented in this encounter [facility]ospital Discharge instructions No data available for this section [facility] No data available for this section [facility] Summary Purpose Family History No Family History Records Found Relationship Condition Age at Onset Recorded Date/T kate father Heart disease Unknown Not Specified Malignant neoplasm of breast Unknown Relationship Condition Age at Onset Recorded Date/T kate father Heart disease Unknown Not Specified Malignant neoplasm of breast Unknown brother Diabetes mellitus Unknown Heart disease Unknown father Diabetes mellitus Unknown family member Unknown Not Specified Diabetes mellitus Unknown sister Diabetes mellitus Unknown Advance Directives No Advanced Directives Records Found Advance Directive Response Recorded Date/ Time Advance Directives No August 15, 2017 8:27am Chief Complaint and Reason for Visit Chief Complaint Screening Chief Complaint rt shoulder pain, xrays todayrt shoulder MRI results Reason for Referral Specialty Diagnoses / Procedures Referred By Niharika desir Referred To Contact Radiology Diagnoses Right knee pain, unspecified chronicity Procedures XR knee right 1-2 views Berkley Anne MD [address] [facility], [address] [place] [id number] Referral ID Status Reason Start Date Expiration Date Visits Requested Visits Authorized [id number] Authorized Perform Procedure 3 07/12/2024 1 1 Additional Source Comments INFORMATION SOURCE (unrecogn ized section and content) DATE CREATED AUTHOR 06/22/[address] [facility] DATE CREATED AUTHOR AUTHOR'S ORGANIZ ATION 04/17/2021 [facility] DATE CREATED AUTHOR AUTHOR'S ORGANIZ ATION [facility] [place] DATE CREATED AUTHOR AUTHOR'S ORGANIZ ATION 03/24/2023 [facility] DATE CREATED AUTHOR AUTHOR'S ORGANIZ ATION [facility]/31/2023 [facility] DATE CREATED AUTHOR AUTHOR'S ORGANIZ ATION 07/18/2023 [facility] DATE CREATED AUTHOR AUTHOR'S ORGANIZ ATION 12/25/2023 [facility] DATE CREATED AUTHOR AUTHOR'S ORGANIZ ATION 04/06/2024 [facility] DATE CREATED AUTHOR AUTHOR'S ORGANIZ ATION 06/21/2024 [facility] EPIC Patient Care team informatio n (unrecognized section and content) Team Status: Active Member Role Status Dates Adrian Faria II MD Primary Care Provider Active Team Status: Inactive Member Role Status Dates Adrian Faria II MD Primary Care Provider Active TREE Amezquita Attending Provider Active [employer] Relationship Specialty Start Date End Date Adrian Faria MD [address] [facility] [address] [place] [address] PCP - General Internal Medicine 04/09/23 Adrian Faria MD [address] [place] [address] PCP - [facility] 03/14/23 [employer] Relationship Specialty Start Date End Date Adrian Faria MD [address] [place] [address] PCP - General Internal Medicine 04/09/23 Adrian Faria MD [address] [place] [address] PCP - [facility] 03/14/23 [employer] Relationship Specialty Start Date End Date Adrian Faria MD [address] [place] [address] PCP - [facility] Internal [facility] 04/09/23 Adrian Faria MD [address] [place] [address] PCP - [facility] 03/14/23 Team Status: Inactive Member Role Status Dates Adrian Faria II MD Primary Care Provid er, Referring Provider Active Start: December 18, 2023 End: December 18, 2023 Referral Self Attending Provider Active Start: A nancy 2023 End: December 18, 2023 Goals (unrecognized section and content) Goals may be documented in a n alternate section Reason for Visit (unrecogniz ed section and content) Reason Comments Follow-up New problem, right k nee pain, xrays today Reason Comments Cough Pt was given inhaler and abx. For 10 days Reason Comments Follow-up Sinus and asthma exa c FOR RECORDS PERTAINING TO PATIENTS WHO ARE OR HAVE BEEN ENROLLED IN A CHEMICAL DEPENDENCY/SUBSTANCEABUSE PROGRAM, SOME INFORMATION MAY BE OMITTED. This clinical summary was aggregated from multiple sources. Caution should be exercised in using it in the provision of clinical care. This summary normalizes information from multiple sources, and as a consequence, information in this document may materially change the coding, format and clinical context of patient data. In addition, data may be omitted in some cases. CLINICAL DECISIONS SHOULD BE BASED ON THE PRIMARY CLINICAL RECORDS. [facility]. provides no warranty or guarantee of the accuracy or completeness of information in this document.
--- NOTE | 2024-06-21 09:03 | XR_ITS ---
The [address] [address] Patient Name: LEODAN TONEY MRN: [id number] date: 1960 Sex: F Assigned Patient Location: [facility] Current Patient Location: Accession/Order Number: [id number] Exam Date: 06/21/2024 09:08 Report Date: 06/22/2024 06:01 At the request of: LAVON NOVA Procedure: XR knee RT 3V PROCEDURE: XR knee RT 3V HISTORY: Primary Osteoarthritis Of Right Knee M17.11 COMPARISON: None. FINDINGS: BONES:Tiny periarticular degenerative osteophytes involving all 3 compartments. 3 mm calcification medial to the knee joint favoring sequela of remote injury or heterotopic bone formation. No significant joint space narrowing. SOFT TISSUES:No visible soft tissue swelling. EFFUSION:None visible. OTHER: Negative. XR/XR knee RT 3V IMPRESSION: 1. Mild degenerative joint disease. No acute abnormality. Electronically authenticated by: FEMI WILLETT Date: 06/22/2024 06:01
--- NOTE | 2024-06-21 09:05 | US_ITS ---
[place] [id number] Patient Name: LEODAN TONEY MRN: [id number] date: 1960 Sex: F Assigned Patient Location: [facility] Current Patient Location: [facility] Accession/Order Number: [id number] Exam Date: 06/21/2024 09:06 Report Date: 06/21/2024 12:29 At the request of: LAVON NOVA Procedure: US venous doppler LE RT EXAMINATION: US venous doppler LE RT HISTORY: Pain And Swelling Of Lower Leg Right COMPARISON: No relevant comparison available. FINDINGS: REGION: Right lower extremity THROMBI: None. COMPRESSIBILITY: Normal compressibility. FLOW: Normal waveform and antegrade flow between 5 and 20 cm/s. OTHER: None. US/US venous doppler LE RT IMPRESSION: 1. No deep vein thrombus within the right lower extremity. Electronically authenticated by: FEMI WILLETT Date: 06/21/2024 12:29
== END 2024-06-21 08:50 | disposition home or self-care (01) ==
LOC: RAD 08:57
PROVIDERS: PCP Internal Medicine; Visit Provider Internal Medicine
DX: M17.11 Unilateral primary osteoarthritis, right knee (principal); M79.661 Pain in right lower leg; M79.89 Other specified soft tissue disorders
CPT/HCPCS: 73562; 93971